=== PATIENT | female | born 1945 | race Caucasian/White ===

== ENCOUNTER 2018-03-09 07:05 | Emergency (ER) | payer MEDICARE, SELFPAY ==
[2018-03-09 07:12] VITALS: BP 159/73; PULSE 86; RESP 12; TEMP 36.9; O2SAT 96; BMI 32.7
[2018-03-09 07:17] VITALS: BP 151/77; PULSE 85; RESP 16; O2SAT 96
[2018-03-09 07:43] LABS: Bacteria 0 SEEN /hpf (None Seen); Mucous, Urine 0 SEEN /hpf (<or=2+); Red Blood Cells-Urine 0 SEEN /hpf (0-5); White Blood Cells 0 SEEN /hpf (0-5)
[2018-03-09 07:46] LABS: Color, Urine Yellow (Yellow); Glucose, Dipstick 1000 mg/dl (Normal); Ketone-Dipstick Negative (Negative); Leukocyte Esterase-Dipstick Negative /ul (Negative); Nitrite-Dipstick Negative (Negative); Occult Blood-Urine Negative /ul (Negative); Protein-Dipstick Negative (Negative); Specific Gravity, Urine 1.005 (1.002-1.030); Urine Bilirubin Dipstick Negative (Negative); Urine Clarity Sl. Cloudy (Clear); Urine Urobilinogen Normal (Normal)
[2018-03-09 07:52] LABS: Squamous Epithelial Cells - UA 0-5 SEEN /hpf (5-10)
--- NOTE | 2018-03-09 07:52 | ED.VISSUMM ---
- ER Visit Summary Date of Service: 03/09/18 Chief Complaint: Dizziness History of Present Illness: The patient is a 72 F presenting for evaluation secondary dizziness. Patient reports that tonight she rolled over in bed and had a sudden onset of dizziness. She describes this as a sudden onset sudden offset spinning type sensation that seems to be worsened when she is laying flat and she rolls over. Patient states that is not associated with any sort of visual changes speech difficulty headache weakness or paresthesia. Patient reports that directly after the episode she took her blood pressure and noted it to be in the 180s over 90s range. Patient also states that she has been having elevated blood sugars recently. She is on metformin, no recent changes in her dosage. Patient denies any chest pain or shortness of breath. She denies any neck trauma or cervical manipulation. Review of systems otherwise negative. Physical Examination: Vital signs are within normal limits, patient is afebrile. General: Patient is well-nourished well-developed and in no acute distress. Head: Normocephalic, atraumatic Eyes: Pupils equal round and reactive bilaterally, extra occular motion intact bialterally ENT: Moist mucous membranes Neck: Supple, no lymphadenopathy, no JVD, no meningismus CVS: Heart regular rate and rhythm, no murmurs, rubs or gallops, radial pulses 2+ bilaterally Resp: Respirations nondistressed, lung sounds clear bilaterally Abdomen: Soft, nontender, nondistended, no palpable masses, normal bowel sounds Back: Nontender Extremities: Nontender, atraumatic, active full range of motion, no peripheral edema Skin: warm, no rashes, no petechia Neuro: Alert and oriented x 4, CN 2-12 intact, no lateralizing neurological defecits, NIH stroke scale is 0. Positive Hanane-Hallpike maneuver on the right with some rotary nystagmus Psyc: Normal affect Test Results: Urinalysis demonstrates no evidence of infection but does demonstrate glucose. Chemistry shows hyperglycemia with normal renal function Emergency Department Course and Treatment: Patient presented for evaluation secondary to dizziness. Patient's history and physical exam seem very consistent with peripheral vertigo. Patient was recommended on conservative management of this. Given the patient's labile blood sugars recently, I did check a metabolic panel on her to ensure normal renal function and this was normal, she also has no evidence of UTI. She was recommended follow-up with her primary care physician for potential titration of her hyperglycemic medications. Since blood pressure on repeat evaluation was 130/70. Patient is discharged in stable condition. Disposition: Discharge Impression: 1. Right-sided BPPV 2. Hyperglycemia This note was generated with [employer] dictation software. It may contain incorrect words, spelling, and punctuation that were not noted in review of the chart prior to signing ED Disposition - Plan for ED Patient: Disposition: Home or Assisted Living Chief Complaint: Burn Diagnosis: BPPV (benign paroxysmal positional vertigo) Instructions: ED BPV Vertigo Referrals: Louise Barahona MD [Primary Care Provider] -
[2018-03-09 08:00] LABS: Anion Gap 9 (5-15); BUN 19 mg/dL (7-18); BUN/Creat Ratio 19.2 RATIO (10-20); Calcium,Total 8.8 mg/dL (8.5-10.1); Chloride 103 mmol/L (98-107); Creatinine, Serum 0.99 mg/dL (0.55-1.02); EST Glomerular Filtration Rate 59 mL/min (>60); Est Glom Filt Rate - Afr Amer 71 mL/min (>60); Estimated Creatinine Clearance 48.79 ml/min; Glucose 231 mg/dL (74-106); Potassium 4.4 mmol/L (3.5-5.1); Sodium Level 138 mmol/L (136-145)
[2018-03-09 08:41] VITALS: BP 135/72; PULSE 71; RESP 16; O2SAT 97
== END 2018-03-09 08:41 | disposition home or self-care (01) ==
PROVIDERS: Emergency Provider Emergency Medicine; Family Provider Internal Medicine; PCP Internal Medicine
DX: H81.10 Benign paroxysmal vertigo, unspecified ear (principal); E11.65 Type 2 diabetes mellitus with hyperglycemia; I10 Essential (primary) hypertension; Z79.84 Long term (current) use of oral hypoglycemic drugs; Z79.82 Long term (current) use of aspirin; Z79.891 Long term (current) use of opiate analgesic; Z79.899 Other long term (current) drug therapy
CPT/HCPCS: 80048; 81001; 99282

== ENCOUNTER 2020-02-11 08:41 | Inpatient (IN) | payer MEDICARE, SELFPAY ==
[2020-02-11] VITALS (16 sets, daily range): BP systolic 95–162; BP diastolic 58–112; PULSE 64–148; RESP 16–22; TEMP 36.1–37; O2SAT 94–98; BMI 32.3; BMI 31.8; BMI 31.9
--- NOTE | 2020-02-11 08:55 | EKG12_ITS ---
Test Reason : TACHY Blood Pressure : / mmHG Vent. Rate : 147 BPM Atrial Rate : 163 BPM P-R Int : 000 ms QRS Dur : 084 ms QT Int : 272 ms P-R-T Axes : 000 033 090 degrees QTc Int : 425 ms Atrial fibrillation with rapid ventricular response Low voltage QRS (Limb Leads) Abnormal ECG Confirmed by PREET ROBLES, ARMANDO ([id number]), mapping editor RAINER BURTON ([id number]) on 02/14/2020 11:27:35 AM Referred By: YIMI Confirmed By:ARMANDO OVIEDO MD
--- NOTE | 2020-02-11 08:59 | EKG12_ITS ---
Test Reason : REPEAT Blood Pressure : / mmHG Vent. Rate : 093 BPM Atrial Rate : 133 BPM P-R Int : 000 ms QRS Dur : 078 ms QT Int : 368 ms P-R-T Axes : 000 012 073 degrees QTc Int : 457 ms Atrial fibrillation Low voltage QRS (Limb Leads) Abnormal ECG Confirmed by PREET ROBLES, ARMANDO ([id number]), editor publications RAINER BURTON ([id number]) on 02/14/2020 11:23:59 AM Referred By: YIIM Confirmed By:ARMANDO OVIEDO MD
[2020-02-11] MEDS: dilTIAZem 25 MG/5 ML Vial 20 MG IV BOLUS ×2 (09:10→10:30)
[2020-02-11] MEDS: 0.9% Normal Saline 1,000 ML 1000 ML IV (09:10)
--- NOTE | 2020-02-11 09:25 | RAD_ITS ---
STUDY: X-RAY CHEST REASON FOR EXAM: Female, 74 years old. SOB TECHNIQUE: Single AP portable view of the chest. COMPARISON: None. FINDINGS: EKG electrodes are seen. The lungs are clear and expanded. There is no demonstrated pleural abnormality. Normal size heart. Normal mediastinum and taylor. Normal visualized pulmonary arteries. Normal visualized aortic arch and descending thoracic aorta. Normal visualized thoracic spine. Normal visualized ribs, clavicles, and shoulders. There is no demonstrated abnormality of the visualized soft tissue structures of the upper abdomen. RAD/Chest 1 View (Portable) IMPRESSION: Normal x-ray examination of the chest. Electronically Signed: Iker Prabhakar, at 9:47 EDT , Service support ,
[2020-02-11 09:40] LABS: Absolute Lymphocyte Count 1.72 X10^3/uL (0.83-4.51); Basophil# 0.05 X10^3/uL; Basophil% 0.7 % (0-1); Eosinophil# 0.06 X10^3/uL; Eosinophils% 0.8 % (0-5); Hematocrit 43.8 % (37-47); Hemoglobin 14.2 g/dL (12.0-15.0); Lymphocyte # 1.72 X10^3/ul (4.0); Lymphocyte % 23.5 % (19-41); Mean Corp Hgb Conc 32.4 g/dL (32-36); Mean Corpuscular Hgb 27.7 pg (27.0-32.0); Mean Corpuscular Volume 85.5 fL (81-99); Mean Platelet Vol. 11.2 fl (6.2-12.0); Monocyte# 0.42 X10^3/uL; Monocyte% 5.7 % (0-10); NRBC Flagged by Analyzer 0 % (0-5); Neutrophil # 5.04 X10^3/uL (2.7-7.7); Neutrophil % 68.9 % (47-70); Platelet Count 298 K/mm3 (150-450); RBC Distribution Width CV 13.2 % (11.6-14.6); RBC Distribution Width SD 41.5 fl (35.1-43.9); Red Blood Count 5.12 M/mm3 (4.2-5.4); White Blood Count 7.3 K/mm3 (4.4-11.0)
[2020-02-11 09:42] LABS: D-Dimer Quantitative (DVT/PE) 0.59 FEU/ug/m (0.27-0.49)
--- NOTE | 2020-02-11 09:45 | CT_ITS ---
STUDY: CTA CHEST REASON FOR EXAM: Female, 74 years old. SOB, HTN RADIATION DOSAGE (If Supplied By Facility): CTDIvol = ( 10.525 ) mGy, DLP = ( 484.66 ) mGycm TECHNIQUE: The examination was performed with the intravenous administration of IV 100mL Isovue-370. Post-processing of the angiographic images was performed, with multiplanar reformation and 3D reconstruction. Individualized dose optimization techniques were used for this CT. COMPARISON: None. FINDINGS: Normal enhancement of the main pulmonary artery and right and left pulmonary arteries. Normal enhancement of the bilateral peripheral pulmonary arteries. There is no demonstrated pulmonary embolism. There is atherosclerotic calcification of the aortic arch with tortuosity. There is no demonstrated aortic dissection. There are calcifications of the coronary arteries. Normal mediastinum. Normal hilar regions. Normal visualized trachea and bronchi. The lungs are well expanded. Normal pulmonary parenchyma. Normal pleura. Normal chest wall structures. There are degenerative changes of thoracic spine. I suspect a 1 cm fat-containing nodule in the upper pole of the right kidney in keeping with angiomyolipoma. CT/CTA Chest W/WO Contrast IMPRESSION: No acute abnormality is seen. Electronically Signed: Iker Prabhakar, at 10:32 EDT , Service support ,
[2020-02-11 09:49] LABS: Anion Gap 9 (5-15); BUN 25 mg/dL (7-18); BUN/Creat Ratio 23.4 RATIO (10-20); Chloride 99 mmol/L (98-107); Creatinine, Serum 1.07 mg/dL (0.55-1.02); EST Glomerular Filtration Rate 53 mL/min (>60); Est Glom Filt Rate - Afr Amer 65 mL/min (>60); Estimated Creatinine Clearance 43.84 ml/min; Glucose 377 mg/dL (74-106); Magnesium 1.4 mg/dL (1.6-2.6); Potassium 4.2 mmol/L (3.5-5.1); Sodium Level 135 mmol/L (136-145)
--- NOTE | 2020-02-11 10:50 | PCM.HP.STD ---
History of Present Illness The patient is a 74 year old F [] Past Medical History Past Medical History (Chronic Problems): Chronic Problems DM2 (diabetes mellitus, type 2) (Chronic) Hypothyroidism (Chronic) Hypertension (Chronic) Allergies benazepril Adverse Reaction (Verified 02/11/20 09:28) PT UNSURE OF REACTION Home Medications: Ambulatory Orders Medication Instructions Recorded Atenolol [Tenormin (beta glendy)] 25 mg PO BID 09/04/16 Felodipine [Plendil] 10 mg PO DAILY 09/04/16 Folic Acid 1 mg PO DAILY@0800 09/04/16 Glimepiride [Amaryl] 1 mg PO BID 09/04/16 Levothyroxine Sodium 137 mcg PO DAILY 09/04/16 metFORMIN HCl [Glucophage] 1,000 mg PO BIDCM 09/04/16 Acetaminophen [Tylenol] 1,000 mg PO Q8 03/09/18 Aspirin 81 mg PO DAILY 02/11/20 Atorvastatin Calcium 20 mg PO DAILY 02/11/20 Losartan/Hydrochlorothiazide 1 tab PO DAILY 02/11/20 [Hyzaar 50-12.5 Tablet] Smoking Status: Former smoker - *Family History Paternal History Items: Heart Disease - Physical Exam Vitals/I&O's: Vital Signs Temp Pulse Resp BP Pulse Ox 97.4 F L 111 H 18 130/87 H 98 02/11/20 09:28 02/11/20 10:31 02/11/20 10:31 02/11/20 10:31 02/11/20 10:31 Oxygen Flow Rate (L/min) 2 Oxygen Delivery Method Nasal Cannula Weight: 200 lb 6.403 oz Body Mass Index (BMI) 32.3 Finger Stick Blood Glucose 263 Laboratory Results 02/11/20 09:10: WBC 7.3, RBC 5.12, Hgb 14.2, Hct 43.8, MCV 85.5, MCH 27.7, MCHC 32.4, RDW Std Deviation 41.5, RDW Coeff of Marcie 13.2, Plt Count 298, MPV 11.2, Immature Gran % (Auto) 0.400, Neut % (Auto) 68.9, Lymph % (Auto) 23.5, [place] % (Auto) 5.7, Eos % (Auto) 0.8, Baso % (Auto) 0.7, Absolute Neuts (auto) 5.0, Absolute Lymphs (auto) 1.72, Nucleated RBC % 0 02/11/20 09:10: Sodium 135 L, Potassium 4.2, Chloride 99, Carbon Dioxide 27.0, Anion Gap 9, BUN 25 H, Creatinine 1.07 H, Estim Creat Clear Calc 43.84, Est GFR (MDRD) Af Amer 65, Est GFR (MDRD) Non-Af 53 L, BUN/Creatinine Ratio 23.4 H, Glucose 377 H, Calcium 9.0, Magnesium 1.4 L, Troponin I < 0.015 02/11/20 09:10: D-Dimer Quant (PE/DVT) 0.59 H* Assessment/Plan All Active Problems Status post left hip replacement (Acute)
[2020-02-11] MEDS: dilTIAZem 60 MG Tablet PO (11:21)
[2020-02-11] MEDS: Enoxaparin 100 MG/ML Syringe 90 MG SC (11:21)
--- NOTE | 2020-02-11 11:22 | HP.PCM_ITS ---
Problem List (1) New onset atrial fibrillation Status: Acute (2) Status post left hip replacement Status: Chronic (3) DM2 (diabetes mellitus, type 2) Status: Chronic (4) Hypertension Status: Chronic (5) Hypothyroidism Status: Chronic (6) Atrial fibrillation with RVR Status: Acute History of Present Illness Date of Admission: 02/11/20 Chief Complaint: Shortness of breath on exertion for 2 days The patient is a 74 year old F with history of diabetes mellitus type 2 and hypothyroidism but no prior cardiac disease came to ED after she felt shortness of breath on climbing stairs. She felt tired and weak and mild short of breath on usual house chores yesterday. She woke up in the morning with some funny feeling. After that, she feels short of breath on 1 flight of stairs but denies pounding sensation, palpitation or chest pain. She felt mild chest tightness. In the morning, her heart rate was 147/min and blood pressure is elevated at home. She denies any previous history of A. fib, coronary artery disease or CHF. No leg edema or gaining weight. Denies fever or chills or cough or attending large gathering or crowd. [] In ED, she was found heart rate 148/min, blood pressure 162/92, pulse ox 97% on room air. No tachypnea. Twelve-lead EKG was done and shows A. fib with RVR at 147 bpm. Previous EKG in August 2016 was sinus rhythm at 73 bpm. She had normal chest x-ray and chest CT was done for elevated D-dimer which did not show acute abnormality. Past Medical History Past Medical History (Chronic Problems): Chronic Problems DM2 (diabetes mellitus, type 2) (Chronic) Hypothyroidism (Chronic) Hypertension (Chronic) Status post left hip replacement (Chronic) Allergies benazepril Adverse Reaction (Verified 02/11/20 09:28) PT UNSURE OF REACTION Home Medications: Ambulatory Orders Medication Instructions Recorded Atenolol [Tenormin (beta glendy)] 25 mg PO BID 09/04/16 Felodipine [Plendil] 10 mg PO DAILY 09/04/16 Folic Acid 1 mg PO DAILY@0800 09/04/16 Glimepiride [Amaryl] 1 mg PO BID 09/04/16 Levothyroxine Sodium 137 mcg PO DAILY 09/04/16 metFORMIN HCl [Glucophage] 1,000 mg PO BIDCM 09/04/16 Acetaminophen [Tylenol] 1,000 mg PO Q8 03/09/18 Aspirin 81 mg PO DAILY 02/11/20 Atorvastatin Calcium 20 mg PO DAILY 02/11/20 Losartan/Hydrochlorothiazide 1 tab PO DAILY 02/11/20 [Hyzaar 50-12.5 Tablet] Smoking Status: Former smoker - 15 years ago. Started smoking in her 20s. - *Family History Paternal History Items: Heart Disease Review of Systems Constitutional: Denies: Chills, Fever, Weight Change HEENT: Denies: Head Aches, Sinus Congestion, Sinus Drainage Cardiovascular: Reports: Chest Tightness. Denies: Chest Pain, Edema, Palpitations Respiratory: Reports: Shortness of breath upon exertion. Denies: Cough, Hemoptysis, Pleuritic Pain, Shortness of breath at rest, Sputum production, Wheezing Gastrointestinal: Denies: Abdominal Pain, Nausea, Vomiting Genitourinary: Denies: Dysuria, Frequency, Retention, Urgency Musculoskeletal: Denies: Joint Pain, Joint Tenderness Skin: Denies: Rash, Wounds Neurological: Denies: Balance problems, Focal weakness, Numbness, Tingling Psychiatric: Denies: Anxiety, Depression, Homicidal Ideations, Suicidal Ideations Hematologic/ Lymphatic: Denies: Easy Bruising, Easy Bleeding VTE Information - Inpt Only VTE Present on Admission: No VTE Mechan Device Prophylaxis: None VTE Pharm Prophylaxis ordered?: No Reason prophylaxis not ordered:: Procedure Not Indicated - Already on anticoagulant for A. fib Objective: Physical exam General: Alert, Oriented x3, Cooperative, mild obesity, BMI 32.3 kg/m? HEENT: Atraumatic, PERRLA, EOMI, Normocephalic Oral: No Gingival or Mucosal Lesions/ Ulcerations Neck: Supple, No JVD, Negative Carotid Bruits Lungs: Air entry diminished in bilateral lung bases. No crepitation/rhonchi Cardiovascular: Irregular rate and rhythm, A. fib with RVR, normal S1, Normal S2, No murmurs Abdomen: Bowel Sounds Present, Soft, Non Tender, Non-Distended : No renal angle tenderness. No suprapubic tenderness. Extremities: No edema, Capillary Refill Less than 3 Seconds Skin: No rashes, No breakdown Musculoskeletal: No Tenderness to Palpation of Joints or Extremities Neurological: Cranial nerves II-XII grossly intact, Deep Tendon Reflexes 2+/4 and Symmetrical, Neuro grossly intact Psych/Mental Status: Normal Affect, Appropriate. - Physical Exam Vitals/I&O's: Vital Signs Temp Pulse Resp BP Pulse Ox 97.4 F L 111 H 18 130/87 H 98 02/11/20 09:28 02/11/20 10:31 02/11/20 10:31 02/11/20 10:31 02/11/20 10:31 Oxygen Flow Rate (L/min) 2 Oxygen Delivery Method Nasal Cannula Weight: 200 lb 6.403 oz Body Mass Index (BMI) 32.3 Finger Stick Blood Glucose 263 Laboratory Results 02/11/20 09:10: WBC 7.3, RBC 5.12, Hgb 14.2, Hct 43.8, MCV 85.5, MCH 27.7, MCHC 32.4, RDW Std Deviation 41.5, RDW Coeff of Marcie 13.2, Plt Count 298, MPV 11.2, Immature Gran % (Auto) 0.400, Neut % (Auto) 68.9, Lymph % (Auto) 23.5, [place] % (Auto) 5.7, Eos % (Auto) 0.8, Baso % (Auto) 0.7, Absolute Neuts (auto) 5.0, Absolute Lymphs (auto) 1.72, Nucleated RBC % 0 02/11/20 09:10: Sodium 135 L, Potassium 4.2, Chloride 99, Carbon Dioxide 27.0, Anion Gap 9, BUN 25 H, Creatinine 1.07 H, Estim Creat Clear Calc 43.84, Est GFR (MDRD) Af Amer 65, Est GFR (MDRD) Non-Af 53 L, BUN/Creatinine Ratio 23.4 H, Glucose 377 H, Calcium 9.0, Magnesium 1.4 L, Troponin I < 0.015 02/11/20 09:10: D-Dimer Quant (PE/DVT) 0.59 H* 02/11/20 11:10: COVID-19 ([facility]) Pending Current Medications Insulin Glargine (Insulin Glargine 100 Units/Ml Pen) 10 units SC DINNER COUNTS INCLUDE 234 BEDS AT THE [facility] Assessment/Plan All Active Problems New onset atrial fibrillation (Acute) Atrial fibrillation with RVR (Acute) This 74-year-old female with history of diabetes mellitus type 2 is being admitted for new onset A. fib with RVR. 1. New onset A. fib with RVR: Patient is being admitted in PCU if COVID-19 PCR is negative. Started on metoprolol 50 mg p.o. twice daily along with Cardizem 30 mg every 6 hourly. Patient heart rate has slowed, low 100s to 110s. At home, patient already on atenolol 25 mg p.o. twice daily and baby aspirin and levothyroxine 137 mcg daily. 2D echo is ordered. Patient got Lovenox in ED. Started on Eliquis 5 mg p.o. twice daily. Fasting profile ordered for tomorrow a.m. 2. 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 Hold Metformin as patient had CT IV contrast. IV fluid normal saline at 60 mils per hour to prevent contrast-induced nephropathy. BUN/creatinine 25/1.07 elevated than baseline 19/0.99 in February 2018. Monitor BMP tomorrow a.m. along with urine include and output. UA shows glucosuria but no proteinuria. 3. Hypertension: At home patient is on Hyzaar 50-12.5 mg daily. Continued. It is unclear whether she is on felodipine 10 mg daily or not but will hold it. 4. Hypothyroidism: TSH and free T4 tomorrow a.m. Continue levothyroxine as mentioned above. VTE prophylaxis: Already on Eliquis. [id number]
--- NOTE | 2020-02-11 11:29 | ED.DCSUM_ITS ---
History of Present Illness Chief Complaint: Shortness of Breath Informant: Patient Narrative: 74-year-old female with past medical history of hypertension presents with concern for shortness of breath. States that it began early this morning. States that she went to climb stairs and she is profoundly short of breath. Denies any chest pain, nausea, vomiting, fever, chills. Denies any sick contacts. Past Medical History - Allergies and Home Meds Allergies/Adverse Reactions: Allergies benazepril Adverse Reaction (Verified 02/11/20 09:28) PT UNSURE OF REACTION Prior records reviewed: Yes Past Medical History: - - HTN Lives: Spouse/ Significant Other Smoking Status: Former smoker Alcohol: None Drugs: None - Family History Paternal Family History: Reports: Heart Disease Review of Systems General: Denies: Chills, Fever, Sweats Eyes: Denies: Visual changes - bilaterally, Diplopia ENT: Denies: Rhinorrhea, Sore throat Cardiovascular: Denies: Chest pain, Palpitations Respiratory: Reports: Dyspnea. Denies: Cough, Dyspnea on exertion Gastrointestinal: Denies: Abdominal pain, Nausea, Vomiting, Diarrhea, Melena, Hematochezia Genitourinary: Denies: Dysuria, Hematuria, Frequency Musculoskeletal: Denies: Back pain, Extremity Pain Skin: Denies: Rash, Wounds Neurological: Denies: Headache, Weakness, Numbness Physical Exam Vital Signs/Narrative: Vital Signs Temp Pulse Resp BP Pulse Ox 02/11/20 10:31 111 H 18 130/87 H 98 02/11/20 09:28 97.4 F L 114 H 18 131/74 H 97 02/11/20 09:21 114 H 18 131/74 H 97 02/11/20 09:03 97 02/11/20 09:02 139 H 18 96 02/11/20 08:44 97.4 F L 148 H 18 162/92 H 97 Inital Vital Signs reviewed: Yes General: Well nourished, Well developed, No Acute Distress Head: Normocephalic, Atraumatic Eyes: Perrl, EOMI ENT: Moist mucous membranes, No rhinorrhea Neck: Supple, Nontender Cardiovascular: No murmurs, Irregular, Tachycardia Respiratory: No distress, CTA bilaterally, Chest nontender Abdomen: Soft, Nontender, Nondistended, Normal bowel sounds Back: Nontender, Normal Inspection Extremities: Nontender, No edema Skin: Normal color, No rash Neurological: Alert, Oriented x3, Cranial nerves II-XII grossly intact, Normal Strength, Normal Sensation Psychological: Normal affect, Normal Mood Diagnostic/Tx/Re-eval Chest X-Ray - ED: 1 View, Normal Clinical Impression(s) from Imaging Studies Chest X-Ray 02/11/20 09:25 IMPRESSION: Normal x-ray examination of the chest. Electronically Signed: Iker Aki, at 9:47 EDT , Service support , Chest CTA 02/11/20 09:45 IMPRESSION: No acute abnormality is seen. Electronically Signed: Iker Aki, at 10:32 EDT , Service support , Laboratory Data 02/11/20 02/11/20 02/11/20 09:10 09:10 09:10 WBC 7.3 RBC 5.12 Hgb 14.2 Hct 43.8 MCV 85.5 MCH 27.7 MCHC 32.4 RDW Std Deviation 41.5 RDW Coeff of Marcie 13.2 Plt Count 298 MPV 11.2 Immature Gran % (Auto) 0.400 Neut % (Auto) 68.9 Lymph % (Auto) 23.5 [place] % (Auto) 5.7 Eos % (Auto) 0.8 Baso % (Auto) 0.7 Absolute Neuts (auto) 5.0 Absolute Lymphs (auto) 1.72 Nucleated RBC % 0 D-Dimer Quant (PE/DVT) 0.59 H* Sodium 135 L Potassium 4.2 Chloride 99 Carbon Dioxide 27.0 Anion Gap 9 BUN 25 H Creatinine 1.07 H Estim Creat Clear Calc 43.84 Est GFR (MDRD) Af Amer 65 Est GFR (MDRD) Non-Af 53 L BUN/Creatinine Ratio 23.4 H Glucose 377 H Calcium 9.0 Magnesium 1.4 L Troponin I < 0.015 - Rhythm Strip Rate: 148 - EKG Initial EKG Interpretation: Atrial Fibrillation - Atrial fibrillation with rapid ventricular rate at [address] changes. - Medical Decision Making Appears well nontoxic. A. fib with RVR. Patient was given 20 mg of Cardizem IV twice. This did reduce her heart rate into the mid 90s. She was then given p.o. Cardizem. This is new onset atrial fibrillation. For that reason CTA was done which shows no pulmonary embolism. Patient was given 1 mg/kg subcutaneous Lovenox. Hypomagnesemia replaced IV. Other lab work within normal limits including a negative troponin. Patient will be admitted to the hospital for further treatment and evaluation. Stable at time of admission. Impression: 1. New onset atrial fibrillation with RVR 2. Hypomagnesemia 3. Dyspnea - Critical Care Time Critical care time (excluding procedures): 30-74 minutes, Discussing w/Patient &/or Family/Supervisor Press Room, Performing Direct Patient Care at Bedside ED Disposition - Plan for ED Patient: Disposition: Acute Care [facility]
[2020-02-11] MEDS: Magnesium Sulfate 2 GM IV IV (11:53)
--- NOTE | 2020-02-11 15:19 | ECHOCS_ITS ---
Reason For Study: NEW ONSET AFIB Procedure This was a 2D Doppler, Color Flow transthoracic echocardiogram. The study was technically difficult. Contrast injection was performed. Exam performed portable in patient room. Left Ventricle Normal LV size. Sigmoid septum. Left ventricular systolic function is normal. The estimated ejection fraction is 65 %. No regional wall motion abnormalities noted. Right Ventricle Normal RV size. Normal systolic function. Atria The left atrium is moderately enlarged. Normal right atrium. No doppler evidence for ASD. Mitral Valve There is moderate to severe mitral annular calcification. Extension of the mitral annular calcification onto the mitral valve leaflets. Mild diffuse mitral valve thickening. Mild focal mitral valve calcification of the anterior leaflet. Moderate mitral valve stenosis. Mild (1+) mitral valve insufficiency. Tricuspid Valve Normal tricuspid valve. Mild tricuspid valve insufficiency. Right ventricular systolic pressure estimated to be 35 mmHg. Aortic Valve Trisinus/trileaflet aortic valve. Mild diffuse aortic valve thickening. Mild focal aortic valve calcification. Pulmonic Valve The pulmonic valve is not well visualized. Great Vessels Normal sized aortic root. Calcified aortic root. Pericardium/Pleural No pericardial effusion. Medication Diluted definity 3.0ml given slow IV push to enhance endocardial definition. MMode/2D Measurements & Calculations LVIDd: 5.7 cm IVSd: 0.68 cm LVOT diam: 1.9 cm LVIDs: 3.9 cm LVPWd: 0.79 cm RVDd: 3.4 cm FS: 31.2 % LVOT area: 2.7 cm2 Ao root diam: 3.4 cm LAV(MOD-bp): 91.3 ml LA A4 area: 25.6 cm2 LAV(MOD-bp) Indexed: 45.9 ml/m2 LAV(MOD-sp2): 101.3 ml LAV(MOD-sp4): 84.3 ml LA dimension(2D): 5.0 cm RA A4 area: 13.6 cm2 Doppler Measurements & Calculations MV E max onur: 217.8 cm/sec Lat Peak E' Onur: 7.4 cm/sec Med Peak E' Onur: 4.2 cm/sec MV A max onur: 198.4 cm/sec E/E' lat: 29.6 E/E' med: 51.9 MV E/A: 1.1 MV V2 max: 197.2 cm/sec PA V2 max: 98.2 cm/sec TR max onur: 281.6 cm/sec MV max P.6 mmHg TR max P.7 mmHg MV V2 mean: 148.7 cm/sec MV mean P.2 mmHg MV V2 VTI: 53.2 cm MV P1/2t-pr_phl: 127.6 msec Interpretation Summary The study was technically difficult. Contrast injection was performed. Left ventricular systolic function is normal. The estimated ejection fraction is 65 %. Sigmoid septum. The left atrium is moderately enlarged. There is moderate to severe mitral annular calcification. Extension of the mitral annular calcification onto the mitral valve leaflets. Mild diffuse mitral valve thickening. Mild focal mitral valve calcification of the anterior leaflet. Moderate mitral valve stenosis. Mild (1+) mitral valve insufficiency. Mild tricuspid valve insufficiency. Mild diffuse aortic valve thickening. Mild focal aortic valve calcification. Calcified aortic root. Right ventricular systolic pressure estimated to be 35 mmHg. Transmitral diastolic flow velocities suggest diastolic dysfunction (pseudonormal pattern). Ordering Physician: Edgar Gunter Referring Physician: ADDI ACEVEDO Performed By: Erika Powers, ZEV, RVT
--- NOTE | 2020-02-11 16:15 | EKG12_ITS ---
Test Reason : Blood Pressure : / mmHG Vent. Rate : 067 BPM Atrial Rate : 067 BPM P-R Int : 212 ms QRS Dur : 074 ms QT Int : 434 ms P-R-T Axes : 050 005 082 degrees QTc Int : 458 ms Sinus rhythm with 1st degree A-V block Otherwise normal ECG When compared with ECG of 11-FEB-2020 11:05, MANUAL COMPARISON REQUIRED, DATA IS UNCONFIRMED Confirmed by JANEL ROBLES, KEVIN ([id number]), fashion editor RAINER BURTON ([id number]) on 02/15/2020 10:59:54 AM Referred By: SUHAIL Confirmed By:KEVIN ISLAS MD
[2020-02-11] MEDS: 0.9% Normal Saline 1,000 ML 60 ML IV (17:42)
[2020-02-11] MEDS: Atorvastatin Calcium 20 MG Tablet PO (21:24)
[2020-02-11] MEDS: Metoprolol Tartrate 25 MG Tablet PO (21:24)
[2020-02-11] MEDS: Insulin Lispro 100 UNIT/ML INSULN.PEN SC (21:34)
[2020-02-11 21:45] LABS: Bedside Glucose 213 mg/dL (70-110)
[2020-02-12 03:17] VITALS: BP 103/50; PULSE 72; RESP 17; TEMP 36.5; O2SAT 94
[2020-02-12 03:36] VITALS: PULSE 69
[2020-02-12] MEDS: Levothyroxine 137 MCG Tablet PO (05:11)
[2020-02-12] MEDS: Enoxaparin 40 MG/0.4 ML Syringe SC (05:13)
[2020-02-12] MEDS: 0.9% Saline Lock 10 ML Syringe IV (05:19)
[2020-02-12] MEDS: Insulin Lispro 100 UNIT/ML INSULN.PEN SC ×2 (06:57→11:32)
[2020-02-12 07:11] LABS: Bedside Glucose 183 mg/dL (70-110)
[2020-02-12 07:41] LABS: Absolute Neutrophil Count 4.2 X10^3/uL (2.0-7.7); Basophil# 0.03 X10^3/uL; Basophil% 0.4 % (0-1); Eosinophil# 0.13 X10^3/uL; Eosinophils% 1.8 % (0-5); Hematocrit 44.5 % (37-47); Hemoglobin 13.7 g/dL (12.0-15.0); Lymphocyte % 35.2 % (19-41); Mean Corp Hgb Conc 30.8 g/dL (32-36); Mean Corpuscular Hgb 26.6 pg (27.0-32.0); Mean Corpuscular Volume 86.4 fL (81-99); Mean Platelet Vol. 10.5 fl (6.2-12.0); Monocyte# 0.43 X10^3/uL; Monocyte% 5.8 % (0-10); NRBC Flagged by Analyzer 0 % (0-5); Neutrophil # 4.18 X10^3/uL (2.7-7.7); Neutrophil % 56.5 % (47-70); Platelet Count 312 K/mm3 (150-450); RBC Distribution Width CV 13.2 % (11.6-14.6); RBC Distribution Width SD 42.2 fl (35.1-43.9); Red Blood Count 5.15 M/mm3 (4.2-5.4); White Blood Count 7.4 K/mm3 (4.4-11.0)
[2020-02-12] MEDS: Folic Acid 1 MG Tablet PO (09:07)
[2020-02-12] MEDS: Glimepiride 1 MG Tablet PO (09:08)
[2020-02-12] MEDS: hydroCHLOROthiazide 12.5mg 12.5 MG PO (09:08)
[2020-02-12 09:09] VITALS: BP 115/51; PULSE 87
[2020-02-12] MEDS: Losartan Potassium 50 MG Tablet PO (09:09)
[2020-02-12] MEDS: Metoprolol Tartrate 25 MG Tablet PO (09:09)
[2020-02-12 09:15] VITALS: BP 115/51; PULSE 87; RESP 16; TEMP 37.1; O2SAT 96
[2020-02-12 09:24] LABS: Anion Gap 5 (5-15); BUN 17 mg/dL (7-18); BUN/Creat Ratio 18.4 RATIO (10-20); Calcium,Total 8.4 mg/dL (8.5-10.1); Chloride 101 mmol/L (98-107); Cholesterol 146 mg/dL (200); Creatinine, Serum 0.93 mg/dL (0.55-1.02); EST Glomerular Filtration Rate 63 mL/min (>60); Est Glom Filt Rate - Afr Amer 76 mL/min (>60); Estimated Creatinine Clearance 50.44 ml/min; Glucose 200 mg/dL (74-106); High Density Lipoprotein 33 mg/dL; Potassium 3.9 mmol/L (3.5-5.1); Sodium Level 137 mmol/L (136-145); T4 Free Direct 1.61 ng/dL (0.76-1.46); Thyroid Stim Hormone (TSH) 1.84 uIU/mL (0.358-3.74); Triglycerides 241 mg/dL; Very Low Density Lipoprotein 48 mg/dL (5-40)
--- NOTE | 2020-02-12 10:30 | DCINST_ITS ---
- Discharge Diagnoses Current Active Problems: Current Active and Chronic Problems New onset atrial fibrillation (Acute) Atrial fibrillation with RVR (Acute) DM2 (diabetes mellitus, type 2) (Chronic) Hypothyroidism (Chronic) Hypertension (Chronic) Status post left hip replacement (Chronic) You will use the following diet at home:: Calorie/Carbohydrate Controlled (specify 1200, 1400, etc) - 1800 ADA diet, Cardiac Your food should be the consistency of: Regular Discharge Activity: Return to Normal Activity Weight Bearing Status: Weight bearing as tolerated Call your doctor if you observe: Fever of 101 or Higher, Coldness, Increased Pain, Change in Color, Inability to urinate, Inability to have a bowel movement, Using more than one pad per hour, Shortness of breath, Fainting spells, Swelling in the ankles, Chest pain, Prolonged hiccoughing, Increased palpitations (irregular heartbeat), Calf discomfort, Uncontrolled pain Additional Instructions: Felodipine was discontinued as patient already on losartan/HCTZ 50-12.5 mg daily. BUN/creatinine was elevated on admission, 25/1.07 which got normal 17/0.93. Free T4 was elevated therefore levothyroxine 137 mcg daily decreased to levothyroxine 112 mcg daily. New prescription for levothyroxine was given. Atorvastatin dose increased to 40 mg daily Allergies/Adverse Reactions: Allergies benazepril Adverse Reaction (Verified 02/11/20 15:27) cough Medications to take at Discharge Folic Acid 1 mg PO DAILY@0800 09/04/16 Glimepiride [Amaryl] 1 mg PO BID 09/04/16 metFORMIN HCl [Glucophage] 1,000 mg PO BIDCM 09/04/16 Aspirin 81 mg PO DAILY 02/11/20 Losartan/Hydrochlorothiazide [Hyzaar 50-12.5 Tablet] 1 tab PO DAILY 02/11/20 Atenolol [Tenormin (beta glendy)] 25 mg PO BID #0 02/12/20 Atorvastatin Calcium 40 mg PO DAILY #0 02/12/20 Levothyroxine [Synthroid] 112 mcg PO DAILY #30 tab 02/12/20 The following prescriptions were given: Levothyroxine [Synthroid] 112 mcg PO DAILY #30 tab Transmission Status: Received by [facility] #[facility] Primary Care Physician: Louise Barahona MD [Primary Care Provider] - Please follow up with your Primary Care Physician in: in 1-2 weeks Test Results: Test results from this visit will be discussed in further detail at your follow- up appointment, if applicable. Please Follow Up With: Louise Barahona MD
--- NOTE | 2020-02-12 10:33 | PCM.DC.SUM ---
Discharge Date and Diagnosis - Problem List Patient Problems: Active and Suspected Problems New onset atrial fibrillation (Acute) Atrial fibrillation with RVR (Acute) Date of Admission: 02/11/20 Date of Discharge: 02/12/20 - Primary Discharge Diagnosis Acute Problems: Active Problems New onset atrial fibrillation (Acute) most likely from hyperthyroidism. - Secondary Discharge Diagnosis Chronic Problems: Chronic Problems DM2 (diabetes mellitus, type 2) (Chronic) Hypothyroidism (Chronic) Hypertension (Chronic) Status post left hip replacement (Chronic) Hospital Course and Treatment Summary of Care Provided: This 74-year-old female with history of diabetes mellitus type 2 is being admitted for new onset A. fib with RVR. 1. New onset A. fib with RVR, most likely from hyperthyroidism.: Patient was admitted in PCU if COVID-19 PCR is negative. Started on metoprolol 50 mg p.o. twice daily along with Cardizem 30 mg every 6 hourly. Patient heart rate has slowed, low 100s to 110s by the time she was admitted. Later she was converted to normal sinus rhythm. TSH normal 1.84, free T4 elevated 1.61. Later on Cardizem discontinued and metoprolol decreased to 25 mg p.o. twice daily. As patient already on atenolol 25 mg p.o. twice daily therefore her beta-glendy was not changed. Advised to hold levothyroxine for 3 days and dose of levothyroxine decreased to 112 mcg daily. Advised to follow with PCP and repeat thyroid function test in 4 weeks to further adjust levothyroxine dose. 2. 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 Hold Metformin as patient had CT IV contrast. IV fluid normal saline at 60 mils per hour to prevent contrast-induced nephropathy. BUN/creatinine 25/1.07 elevated than baseline 19/0.99 in February 2018. BUN/creatinine 17/0.93. Improved. IV fluid discontinued. 3. Hypertension: At home patient is on Hyzaar 50-12.5 mg daily. Felodipine discontinued and this was discussed with the patient and described on the discharge instruction. 4. Hypothyroidism: Levothyroxine dose decreased as mentioned above. 5. Dyslipidemia: Fasting profile shows triglyceride 241, total cholesterol 146. Atorvastatin increased to 40 mg daily. VTE prophylaxis: Eliquis was discontinued and patient converted to sinus rhythm. On regular DVT prophylaxis Lovenox 40 subcu daily. 2D echo was done and reported as mentioned. Left ventricular systolic function is normal. The estimated ejection fraction is 65 %. Sigmoid septum. The left atrium is moderately enlarged. There is moderate to severe mitral annular calcification. Extension of the mitral annular calcification onto the mitral valve leaflets. Mild diffuse mitral valve thickening. Mild focal mitral valve calcification of the anterior leaflet. Moderate mitral valve stenosis. Mild (1+) mitral valve insufficiency. Mild tricuspid valve insufficiency. Mild diffuse aortic valve thickening. Mild focal aortic valve calcification. Calcified aortic root. Right ventricular systolic pressure estimated to be 35 mmHg. Transmitral diastolic flow velocities suggest diastolic dysfunction (pseudonormal pattern). Discharge medication reconciliation done. Discharge follow-up instructions completed. Discharge process discussed with the patient and all questions were answered to patient's satisfaction. Follow-up with PCP for mild to moderate valvular heart disease, moderate MS, mild MR and mild TR. Patient is on baby aspirin, beta-glendy and ARB at home. Total time spent, exact 35 minutes on discharge meds reconciliation, examination, coordination of care with nurses and ancillary staff, review of imaging and blood test and discussion with the patient on follow-up instructions Patient Problems: Active and Suspected Problems New onset atrial fibrillation (Acute) Atrial fibrillation with RVR (Acute) Objective: Patient converted to sinus rhythm yesterday. Heart rate is controlled. Patient free T4 is elevated and discussed to decrease the levothyroxine dose. Does not have chest pain, shortness of breath or palpitation Physical exam General: Alert, Oriented x3, Cooperative, mild obesity, BMI 32.3 kg/m? HEENT: Atraumatic, PERRLA, EOMI, Normocephalic Oral: No Gingival or Mucosal Lesions/ Ulcerations Neck: Supple, No JVD, Negative Carotid Bruits Lungs: Air entry equal in bilateral lung bases. No crepitation/rhonchi Cardiovascular: Sinus rhythm. Normal S1, Normal S2, pansystolic over LLSB and systolic and diastolic murmur present over cardiac apex. Abdomen: Bowel Sounds Present, Soft, Non Tender, Non-Distended : No renal angle tenderness. No suprapubic tenderness. Extremities: No edema, Capillary Refill Less than 3 Seconds Skin: No rashes, No breakdown Musculoskeletal: No Tenderness to Palpation of Joints or Extremities Neurological: Cranial nerves II-XII grossly intact, Deep Tendon Reflexes 2+/4 and Symmetrical, Neuro grossly intact Psych/Mental Status: Normal Affect, Appropriate. - Physical Exam Vitals/I&O's: Vital Signs Temp Pulse Resp BP Pulse Ox 98.7 F 87 16 115/51 L 96 02/12/20 09:15 02/12/20 09:15 02/12/20 09:15 02/12/20 09:15 02/12/20 09:15 Oxygen Flow Rate (L/min) 2 Oxygen Delivery Method Room Air Weight: 197 lb 11.2 oz Body Mass Index (BMI) 31.8 Finger Stick Blood Glucose 263 Intake and Output for Last 24 Hours 02/10/20 02/11/20 02/12/20 23:59 23:59 23:59 Intake Total 2434 / 2434 200 / 200 Balance 2434 / 2434 200 / 200 Laboratory Results 02/11/20 11:10: COVID-19 ([facility]) Not Detected 02/11/20 15:36: Troponin I < 0.015 02/11/20 18:25: Troponin I < 0.015 02/11/20 21:21: POC Glucose 213 H 02/12/20 06:54: POC Glucose 183 H 02/12/20 07:15: WBC 7.4, RBC 5.15, Hgb 13.7, Hct 44.5, MCV 86.4, MCH 26.6 L, MCHC 30.8 L, RDW Std Deviation 42.2, RDW Coeff of Marcie 13.2, Plt Count 312, MPV 10.5, Immature Gran % (Auto) 0.300, Neut % (Auto) 56.5, Lymph % (Auto) 35.2, Butts % (Auto) 5.8, Eos % (Auto) 1.8, Baso % (Auto) 0.4, Absolute Neuts (auto) 4.2, Absolute Lymphs (auto) 2.60, Nucleated RBC % 0 02/12/20 07:15: Sodium 137, Potassium 3.9, Chloride 101, Carbon Dioxide 31.0, Anion Gap 5, BUN 17, Creatinine 0.93, Estim Creat Clear Calc 50.44, Est GFR (MDRD) Af Amer 76, Est GFR (MDRD) Non-Af 63, BUN/Creatinine Ratio 18.4, Glucose 200 H, Calcium 8.4 L, Magnesium 2.0, Triglycerides 241 H, Cholesterol 146, LDL Cholesterol 65, VLDL Cholesterol 48 H, HDL Cholesterol 33 L, TSH 1.84, Free T4 1.61 H 02/12/20 07:15: Hemoglobin A1c Pending Current Medications Acetaminophen (Acetaminophen 500 Mg Tablet) 1,000 mg PO Q8 [facility] Last Admin: 02/12/20 05:18 Dose: Not Given Documented by: Al Hydroxide/Mg Hydroxide (Mag Hydrox/Al Hydrox/Simeth 30 Ml Udc) 30 ml PO Q6H PRN PRN PRN Reason: Gastric Burning Atorvastatin Calcium (Atorvastatin Calcium 20 Mg Tablet) 20 mg PO QHS [facility] Last Admin: 02/11/20 21:24 Dose: 20 mg Documented by: Dextrose (Dextrose 50%-Water 25 Gm/50 Ml Disp.Syrin) 0 gm IV X1 PRN; Protocol PRN Reason: Hypoglycemia Enoxaparin Sodium (Enoxaparin 40 Mg/0.4 Ml Syringe) 40 mg SC DAILY@0600 [facility] Last Admin: 02/12/20 05:13 Dose: 40 mg Documented by: Folic Acid (Folic Acid 1 Mg Tablet) 1 mg PO DAILY@0800 [facility] Last Admin: 02/12/20 09:07 Dose: 1 mg Documented by: Glimepiride (Glimepiride 1 Mg Tablet) 1 mg PO BIDCM [facility] Last Admin: 02/12/20 09:08 Dose: 1 mg Documented by: Glucagon (Glucagon 1 Mg/Ml Syringe) 1 mg IM .X1 PRN PRN Reason: Hypoglycemia Hydrochlorothiazide (Hydrochlorothiazide 12.5mg) 12.5 mg PO DAILY [facility] Last Admin: 02/12/20 09:08 Dose: 12.5 mg Documented by: Sodium Chloride () 1,000 mls @ 60 mls/hr IV .[id number] [facility] Stop: 02/13/20 00:38 Last Admin: 02/11/20 17:42 Dose: 60 mls/hr Documented by: Insulin Glargine (Insulin Glargine 100 Units/Ml Pen) 10 units SC DINNER [facility] Last Admin: 02/11/20 17:53 Dose: Not Given Documented by: Insulin Human Lispro (Insulin Lispro 100 Unit/Ml Insuln.Pen) 0 unit SC ACHS [facility]; Protocol Last Admin: 02/12/20 06:57 Dose: 2 units Documented by: Levothyroxine Sodium (Levothyroxine 137 Mcg Tablet) 137 mcg PO DAILY@0600 [facility] Last Admin: 02/12/20 05:11 Dose: 137 mcg Documented by: Losartan Potassium (Losartan Potassium 50 Mg Tablet) 50 mg PO DAILY [facility] Last Admin: 02/12/20 09:09 Dose: 50 mg Documented by: Melatonin (Melatonin 3 Mg Tablet) 3 mg PO QHS PRN PRN PRN Reason: INSOMNIA Metoprolol Tartrate (Metoprolol Tartrate 25 Mg Tablet) 25 mg PO BID [facility] Last Admin: 02/12/20 09:09 Dose: 25 mg Documented by: Morphine Sulfate (Morphine 2 Mg/Ml Syringe) 2 mg IV Q3H PRN PRN PRN Reason: Pain Score 6-10 Nitroglycerin (Nitroglycerin (Inpatient Use) 0.4 Mg Tab.Subl) 0.4 mg SUBLINGUAL Q5M PRN PRN Reason: CARDIAC/CHEST PAIN Oxycodone HCl (Oxycodone 5 Mg Tablet) 5 mg PO Q4H PRN PRN PRN Reason: Pain Score 4-5 Prochlorperazine Edisylate (Prochlorperazine 10 Mg/2 Ml Vial) 5 mg IV Q4H PRN PRN PRN Reason: Breakthrough Nausea/Vomiting Senna/Docusate Sodium (Senna/Docusate Sodium 1 Tablet) 2 tablet PO BID PRN PRN PRN Reason: Constipation Sodium Chloride (0.9% Saline Lock 10 Ml Syringe) 10 - 40 ml IV UD PRN PRN Reason: SALINE FLUSH Last Admin: 02/12/20 05:19 Dose: 20 ml Documented by: Discharge Activity: Return to Normal Activity Call your doctor if you observe: Fever of 101 or Higher, Coldness, Increased Pain, Change in Color, Inability to urinate, Inability to have a bowel movement, Using more than one pad per hour, Shortness of breath, Fainting spells, Swelling in the ankles, Chest pain, Prolonged hiccoughing, Increased palpitations (irregular heartbeat), Calf discomfort, Uncontrolled pain Home Medications: Medications to take at Discharge Folic Acid 1 mg PO DAILY@0800 09/04/16 Glimepiride [Amaryl] 1 mg PO BID 09/04/16 metFORMIN HCl [Glucophage] 1,000 mg PO BIDCM 09/04/16 Aspirin 81 mg PO DAILY 02/11/20 Losartan/Hydrochlorothiazide [Hyzaar 50-12.5 Tablet] 1 tab PO DAILY 02/11/20 Atenolol [Tenormin (beta glendy)] 25 mg PO BID #0 02/12/20 Atorvastatin Calcium 40 mg PO DAILY #0 02/12/20 Levothyroxine [Synthroid] 112 mcg PO DAILY #30 tab 02/12/20 Following Prescriptions Were Given to Patient: Levothyroxine [Synthroid] 112 mcg PO DAILY #30 tab Transmission Status: Received by [facility] #30 Primary Care Physician: Louise Barahona MD [Primary Care Provider] - Please follow up with your Primary Care Physician in: in 1-2 weeks Please Follow Up With: Louise Barahona MD Medical Necessity - Tobacco Use Smoking Status: Former smoker Tobacco Use: Cigarettes Meaningful Use Info Meaningful Use Diagnoses (Choose all that apply): None applicable OBSV E&M: [id number] Observation care discharge
[2020-02-12 11:15] VITALS: O2SAT 95
[2020-02-12 11:44] LABS: Hemoglobin A1c 8.2 % (3.8-5.6)
[2020-02-12 12:01] LABS: Bedside Glucose 242 mg/dL (70-110)
[2020-02-12 13:44] VITALS: BP 112/68; PULSE 81; RESP 18; TEMP 36.4; O2SAT 94
== END 2020-02-12 13:45 | disposition home or self-care (01) | DRG 310 ==
LOC: ED 09:54 → PCU 11:18
PROVIDERS: Admitting Provider Internal Medicine; Emergency Provider Emergency Medicine; PCP Internal Medicine; Visit Provider Internal Medicine
DX: I48.91 Unspecified atrial fibrillation (principal); E83.42 Hypomagnesemia; E66.9 Obesity, unspecified; Z68.32 Body mass index [BMI] 32.0-32.9, adult; I12.9 Hypertensive chronic kidney disease with stage 1 through stage 4 chronic kidney disease, or unspecified chronic kidney disease; E11.22 Type 2 diabetes mellitus with diabetic chronic kidney disease; N18.30 Chronic kidney disease, stage 3 unspecified; Z87.891 Personal history of nicotine dependence; Z96.642 Presence of left artificial hip joint; Z79.84 Long term (current) use of oral hypoglycemic drugs; Z79.899 Other long term (current) drug therapy; E03.9 Hypothyroidism, unspecified; E78.5 Hyperlipidemia, unspecified; E05.90 Thyrotoxicosis, unspecified without thyrotoxic crisis or storm
CPT/HCPCS: 36415; 71045; 71275; 80048; 80061; 82962; 83036; 83735; 84439; 84443; 84484; 85025; 85379; 87635; 93005; 93306; 99251; 99285; J7030; Q9957; Q9967; A4216; C8929; G0463; J3475; U0002

== ENCOUNTER 2020-06-19 12:22 | Outpatient (RCR) | payer MEDICARE, SELFPAY ==
[2020-02-11 15:25] VITALS: BMI 31.8
== END 2020-06-19 23:59 ==
LOC: IMMUN 12:22
PROVIDERS: PCP Internal Medicine; Visit Provider Family Medicine
DX: Z23 Encounter for immunization (principal)
CPT/HCPCS: 0011A; 0012A

== ENCOUNTER 2022-03-31 10:17 | Emergency (ER) | payer MEDICARE, SELFPAY ==
[2022-03-31 10:19] VITALS: BP 192/92; PULSE 72; RESP 16; TEMP 36.6; O2SAT 95; BMI 30.7
--- NOTE | 2022-03-31 10:32 | EKG12_ITS ---
Test Reason : SOB/BACK PAIN Blood Pressure : / mmHG Vent. Rate : 072 BPM Atrial Rate : 072 BPM P-R Int : 178 ms QRS Dur : 076 ms QT Int : 406 ms P-R-T Axes : 068 012 057 degrees QTc Int : 444 ms Normal sinus rhythm Possible Left atrial enlargement Borderline ECG Confirmed by JANEL ROBLES, KEVIN ([id number]), editor publications RAINER BURTON ([id number]) on 04/02/2022 11:25:41 AM Referred By: CANDIDA/MARIZA Confirmed By:KVEIN ISLAS MD
--- NOTE | 2022-03-31 10:41 | RAD_ITS ---
HISTORY: chest pain. TECHNIQUE: XR Chest 1 View. COMPARISON: 02/11/2020. FINDINGS: CARDIOMEDIASTINAL BORDERS: Cardiac silhouette within normal limits in size. Mediastinal contour unremarkable with calcification of the aortic knob. LUNGS: Radiographically clear. PLEURA: No pleural effusion or pneumothorax seen. OSSEOUS STRUCTURES: Degenerative changes. RAD/Chest 1 View (Portable) IMPRESSION: No acute cardiopulmonary process identified. Electronically Signed: Jessica Emanuel MD at 10:55 EST ,
--- NOTE | 2022-03-31 10:42 | ED.VIS.DYS ---
HPI History of Present Illness Chief Complaint: Shortness of Breath Informant: patient Onset/Context/Timing Onset: Weeks Context: gradual Timing: Intermittent Quality: Positive for Dyspnea on exertion Current Severity: Mild Maximum Severity: Mild Worsened by: Exertion Associated Symptoms Negative for cough, rhinorrhea, post nasal drip, ear pain, fever, sore throat, subjective, chills, sweats, clear sputum, white sputum, yellow sputum, green sputum or other Chest Pain: Positive for None Narrative Narrative: 76-year-old female history of noncemented diabetes and a faulty mitral valve with a murmur that there monitored during for suspected replacement someday. States she has had pain in her back which her shoulder blades intermittently for last couple weeks. She has some exertional dyspnea. No exertional chest pain. No chest pain whatsoever. No history of DVT or PE. She was started on Coumadin about 6 weeks ago due to her mitral valve issue. She is taken Tylenol without relief. She denies any leg pain or swelling. She has no cardiac history besides the valve. PE Risk Factors: Negative for Cancer, OCP + Smoking + > 35, Prior DVT or PE, Recent immobilization, Recent surgery or Recent travel Prior similar symptoms: No Recent Illness/Hospitalization: No PFSH PFSH Home Medications folic acid 1 mg tablet 1 mg PO DAILY@0800 SUPPLEMENT 09/04/16 [History Last Taken 02/11/20] glimepiride 2 mg tablet 1 mg PO BID DM 09/04/16 [History Last Taken 02/11/20] metformin 1,000 mg tablet 1,000 mg PO BIDCM DM 09/04/16 [History Last Taken 02/11/20] aspirin 325 mg tablet 81 mg PO DAILY HEALTH MAINTENANCE 02/11/20 [History Last Taken 02/11/20] losartan 50 mg-hydrochlorothiazide 12.5 mg tablet 1 tab PO DAILY BP 02/11/20 [History Last Taken 02/11/20] atorvastatin 20 mg tablet 40 mg PO DAILY CHOLESTEROL ##0 02/12/20 [Rx Last Taken 02/11/20] levothyroxine 112 mcg tablet 112 mcg PO DAILY #30 tabs 02/12/20 [Rx Last Taken Unknown] atenolol 25 mg tablet 25 mg PO QHS 03/31/22 [History Last Taken Unknown] atenolol 25 mg tablet 50 mg PO BREAKFAST BP 03/31/22 [History Last Taken Unknown] Allergy/AdvReac Type Severity Reaction Status Date / Time benazepril AdvReac cough Verified 03/31/22 10:21 Social History Smoking Status: Former smoker ROS ROS ED ROS Narrative Exertional dyspnea. No chest pain. Review of Systems ROS Unobtainable: Denies due to encephalopathy Constitutional Constitutional ED: Denies chills or fever(s) Eyes Eyes: Denies blurry vision ENT ENT ED: Denies ear pain Cardiovascular Cardiovascular: Denies chest pain, palpitations or racing heartbeat Respiratory/Chest Respiratory/Chest: Reports dyspnea and dyspnea on exertion; Denies cough Gastrointestinal Gastrointestinal: Denies abdominal pain Genitourinary Genitourinary ED: Denies dysuria or hematuria Musculoskeletal Musculoskeletal: Denies arthralgias or back pain Integumentary Denies abscess or Abrasions Neurologic Neurologic: Denies headache(s) Psychiatric Psychiatric: Denies anxiety or depression Endocrine Endocrinology: Denies cold intolerance Hematologic/Lymphatic Hematologic/Lymphatic: Denies easy bleeding or easy bruising Allergic/Immunologic Allergic/Immunologic ED: Denies mouth swelling or tongue swelling EXAM Physical Exam Narrative Exam Narrative: 76-year-old female no acute distress. Vital signs stable afebrile. Pulse ox 95% room air no signs hypoxia. H EENT exam unremarkable. Neck nontender no JVD. No lymphadenopathy. Lungs clear to auscultation bilaterally. Heart regular rate and rhythm rate about 70. 3/6 diastolic murmur. Abdomen soft nontender normal bowel sounds no peritoneal signs. Moving all 4 extremities. Calves are nontender without edema or cords. Neurologically she is awake and alert with no focal motor deficits. Const Vital Signs: 03/31/22 10:19 03/31/22 10:32 03/31/22 11:22 Temperature 97.8 F Temperature Source Temporal Pulse Rate 72 69 Respiratory Rate 16 18 Blood Pressure 192/92 H Blood Pressure Mean 125 Pulse Ox 95 94 Oxygen Delivery Method Room Air Room Air Room Air 03/31/22 11:54 03/31/22 12:02 Temperature Temperature Source Pulse Rate 71 Respiratory Rate 18 Blood Pressure 169/87 H Blood Pressure Mean 114 Pulse Ox 95 Oxygen Delivery Method Room Air Positive well nourished and well developed; Negative for obese, cachectic, contractures or unkempt General Appearance ED: well developed and NAD; Negative for unkempt, cachectic, contractures or pallor Nutritional Appearance: Negative for cachectic or obese HEENT Reports moist mucous membranes; Denies dry mucous membranes atraumatic; Negative for trauma or tenderness Mouth ED: No dry mucous membranes Mouth: No dry mucous membranes Eyes PERRL and EOMs intact bilaterally General Eye ED: Negative for pale conjunctiva or scleral icterus Neck no lymphadenopathy, supple, no meningeal signs and no JVD General: Negative for tenderness Lymph Lymphatic: Negative for other Chest Wall Chest: Negative for other Resp normal respiratory effort and clear to auscultation bilaterally Effort and Inspection: Negative for pain with movement Auscultation: Negative for rales, rhonchi or wheezes Cardio regular rate, regular rhythm, S1 normal heart sound and S2 normal heart sound; Negative for no murmurs Cardio Narrative: 3/6 diastolic murmur. Patient has a known history of a murmur. Rate: Negative for bradycardia or tachycardic GI non-tender, non-distended and no masses Auscultation: normoactive bowel sounds Palpation: soft; Negative for tender or guarding Back/Spine no CVA tenderness and normal to inspection General Back: Negative for CVA tenderness Extremity normal to inspection General Extremety ED: Negative for edema or tenderness General Extremity: Negative for edema Neuro oriented x3 and CN's II-XII intact bilaterally Sensorium / Orientation: alert, oriented to person, oriented to place and oriented to time; Negative for orientation impaired, confused, lethargic or stuporous Speech: speech normal Motor Exam: strength 5/5 throughout; Negative for general weakness or strength abnormal Psych mental status grossly normal Appearance: Negative for unkempt Attitude: No agitated Mood & Affect: Negative for depressed, anxious or tearful Thought Process: normal thought process Skin no wounds and skin turgor normal General Skin Exam: Negative for jaundice or pallor Lesions: no lesions Rashes: no rashes Trauma: Negative for abrasion, laceration or puncture MDM MDM MDM Narrative Medical decision making narrative: Patient with 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 On Coumadin for that. Presents with exertional dyspnea and atypical nonreproducible back pain. She undergo cardiac work-up. She had a CTA in the past which showed no dissection, no aneurysm and no PE. Lab Data Attestation: I reviewed the patient's lab results. Lab results narrative: CBC shows a White count 8. H&H 13 and 42. Platelet count is low at 79,000. Electrolytes gap is 7. Normal BUN 18 creatinine 0.9. Glucose 218. Troponin is normal at 10. She is on Coumadin her INR subtherapeutic 1.9. Chest x-ray unremarkable normal aortic knob and cardiac silhouette. CTA showed a very small left pleural effusion. No PE. No dissection. Indiscriminate pulmonary nodule. All discussed with patient and family. They are comfortable with her being discharged home. Clinically she is doing very well at 12:25 PM. Her exam remains normal. Labs: Laboratory Results - last 24 hr 03/31/22 03/31/22 03/31/22 10:30 10:30 10:30 WBC 8.9 RBC 5.06 Hgb 13.7 Hct 42.6 MCV 84.2 MCH 27.1 MCHC 32.2 RDW Std Deviation 42.7 RDW Coeff of Marcie 14.0 Plt Count 79 L MPV 11.1 Immature Gran % (Auto) 0.500 Neut % (Auto) 65.9 Lymph % (Auto) 24.1 Lewis % (Auto) 7.2 Eos % (Auto) 1.8 Baso % (Auto) 0.5 Absolute Neuts (auto) 5.9 Absolute Lymphs (auto) 2.14 Nucleated RBC % 0 Platelet Estimate SLT DEC PT 21.1 H INR 1.9 Sodium 136 Potassium 4.3 Chloride 102 Carbon Dioxide 27.0 Anion Gap 7 BUN 18 Creatinine 0.96 Estim Creat Clear Calc 47.40 Est GFR (MDRD) Af Amer 72 Est GFR (MDRD) Non-Af 60 BUN/Creatinine Ratio 18.7 Glucose 218 H Calcium 9.1 Troponin I High Sens 10 Radiography Chest X-Ray - ED: 1 View, Read by ED Physician, Read by Radiologist, Heart, Lungs, Mediastinum, Bony Structures, No Acute Disease and Chronic Changes Diagnostic Testing: Clinical Impression(s) from Imaging Studies Chest X-Ray 03/31/22 10:41 IMPRESSION: No acute cardiopulmonary process identified. Electronically Signed: Jessica Emanuel MD at 10:55 EST Reading Location ID and State: [facility] / [place] Tel , Service support , Chest CTA 03/31/22 11:13 IMPRESSION: No evidence of thoracic aortic aneurysm, aortic dissection, or pulmonary embolism. Very mild pulmonary edema with trace left pleural effusion. New 8 mm right lower lobe groundglass pulmonary nodule. Stable bilateral noncalcified pulmonary nodules. Recommend follow-up. Electronically Signed: Jessica Emanuel MD at 12:11 EST , Chest x-ray, portable, single view shows no acute abnormality. Interpreted both by myself and the radiologist. Rhythm Strip Rhythm Strip: Sinus Rhythm Rate: 72 Ectopy: None EKG Initial EKG: Attestation: I personally reviewed and interpreted this EKG as follows: Interpretation: Sinus Rhythm and No Acute Injury Pattern Comments: Normal sinus rhythm rate of 72 no acute signs of [place], ischemia nor dysrhythmia. Unchanged from prior EKG from 2019 Prior EKG tracings: available for review Prior: Unchanged Discharge Plan Triage Chief Complaint: Shortness of Breath ED Provider: Devan Brody Dx/Rx/DC Orders Clinical Impression: Pleural effusion Instructions: ED Pleural Effusion Prescriptions: No Action glimepiride 2 MG tablet 1 mg PO BID metformin 1,000 MG tablet 1,000 mg PO BIDCM folic acid 1 MG tablet 1 mg PO DAILY@0800 losartan-hydrochlorothiazide 1 EACH tablet 1 tab PO DAILY aspirin 325 MG tablet 81 mg PO DAILY levothyroxine 112 MCG tablet 112 mcg PO DAILY Qty: 30 0RF atorvastatin 20 MG tablet 40 mg PO DAILY Qty: 0 0RF atenolol 25 mg Tablet 25 mg PO QHS atenolol 25 MG tablet 50 mg PO BREAKFAST Rx Instructions: Hold if SBP 90 OR HR <60/m Primary Care Provider: Louise Barahona Referrals: Louise Barahona MD [Primary Care Provider] - As Needed Activity Restrictions/Additional Instructions: Your tests including your blood work, chest x-ray, EKG and heart enzymes were all unremarkable. The CAT scan picked up a very small left pleural effusion. Small amount of fluid between the lung and the lining. Most likely causing your symptoms. There is no blood clot nor any signs of an aortic dissection. This should resolve on its own. Follow-up with your primary care physician as needed. Continue your current medications and your Coumadin. Disposition Disposition: Home, Self Care
[2022-03-31 10:48] LABS: Absolute Lymphocyte Count 2.14 X10^3/uL (0.83-4.51); Absolute Neutrophil Count 5.9 X10^3/uL (2.0-7.7); Basophil# 0.04 X10^3/uL; Basophil% 0.5 % (0-1); Eosinophil# 0.16 X10^3/uL; Eosinophils% 1.8 % (0-5); Hematocrit 42.6 % (37-47); Hemoglobin 13.7 g/dL (12.0-15.0); Lymphocyte # 2.14 X10^3/ul (0.83-4.51); Lymphocyte % 24.1 % (19-41); Mean Corp Hgb Conc 32.2 g/dL (32-36); Mean Corpuscular Hgb 27.1 pg (27.0-32.0); Mean Corpuscular Volume 84.2 fL (81-99); Mean Platelet Vol. 11.1 fl (6.2-12.0); Monocyte# 0.64 X10^3/uL; Monocyte% 7.2 % (0-10); NRBC Flagged by Analyzer 0 % (0-5); Neutrophil # 5.85 X10^3/uL (2.7-7.7); Neutrophil % 65.9 % (47-70); POSITIVE COUNT YES; Platelet Count 79 K/mm3 (150-450); RBC Distribution Width SD 42.7 fl (35.1-43.9); Red Blood Count 5.06 M/mm3 (4.2-5.4); White Blood Count 8.9 K/mm3 (4.4-11.0)
[2022-03-31 10:49] LABS: Differential Indicated SCAN CRITERIA MET
[2022-03-31 10:58] LABS: International Normalized Ratio 1.9; Prothrombin Time (Protime)PT. 21.1 SECONDS (11.7-14.9)
[2022-03-31 11:03] LABS: Anion Gap 7 (5-15); BUN 18 mg/dL (7-18); BUN/Creat Ratio 18.7 RATIO (10-20); Calcium,Total 9.1 mg/dL (8.5-10.1); Chloride 102 mmol/L (98-107); Creatinine, Serum 0.96 mg/dL (0.55-1.02); EST Glomerular Filtration Rate 60 mL/min (>60); Est Glom Filt Rate - Afr Amer 72 mL/min (>60); Glucose 218 mg/dL (74-106); Potassium 4.3 mmol/L (3.5-5.1); Sodium Level 136 mmol/L (136-145); Troponin-I HS (w/2H Reflex) 10 pg/mL (3.0-54.0)
[2022-03-31 11:11] LABS: Platelet Estimate SLT DEC (ADEQ)
--- NOTE | 2022-03-31 11:13 | CT_ITS ---
HISTORY: aortic dissection? TECHNIQUE: CT angiogram of the chest was performed after the intravenous administration of 100 mL Isovue-370. Post-processing of the angiographic images was performed with multiplanar reformation and 3D reconstruction. Individualized dose optimization techniques were used for this CT. 1283 images. COMPARISON: XR same day, CT 8 02/11/2020. FINDINGS: CENTRAL AIRWAYS: Patent. LUNGS: 3 mm left upper lobe nodule. 2 mm groundglass left upper lobe nodule. 3 mm and 4 mm right lower lobe nodules. Mild lower lobe septal thickening with groundglass opacities measuring up to 8 mm in the right lower lobe. PLEURA: Trace left pleural effusion. HEART/PERICARDIUM: Heart within normal limits in size. Coronary artery and mitral valvular disease noted. No pericardial effusion. PULMONARY ARTERIES: No filling defect. AORTA/VESSELS: No thoracic aortic aneurysm or dissection flap. Mild atherosclerosis. MEDIASTINUM/SABIHA: Stable borderline enlarged right hilar and mediastinal lymph nodes. OSSEOUS STRUCTURES: Degenerative change. UPPER ABDOMEN: Unchanged left adrenal nodule and fatty lesion in the upper pole of the right kidney. 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 CT/CTA Chest W/WO Contrast IMPRESSION: No evidence of thoracic aortic aneurysm, aortic dissection, or pulmonary embolism. Very mild pulmonary edema with trace left pleural effusion. New 8 mm right lower lobe groundglass pulmonary nodule. Stable bilateral noncalcified pulmonary nodules. Recommend follow-up. Electronically Signed: Jessica Emanuel MD at 12:11 EST ,
[2022-03-31 11:22] VITALS: PULSE 69; RESP 18; O2SAT 94
[2022-03-31 11:54] VITALS: BP 169/87
[2022-03-31 12:02] VITALS: PULSE 71; RESP 18; O2SAT 95
[2022-03-31 12:40] LABS: Reflex Troponin-HS? (from REC) Y
== END 2022-03-31 12:34 | disposition home or self-care (01) ==
PROVIDERS: Emergency Provider Emergency Medicine; PCP Internal Medicine; Visit Provider Emergency Medicine
DX: J90 Pleural effusion, not elsewhere classified (principal); Z87.891 Personal history of nicotine dependence
CPT/HCPCS: 71045; 71275; 80048; 84484; 85025; 85610; 93005; 99284; Q9967; A4216

== ENCOUNTER 2022-10-27 19:48 | Emergency (ER) | payer MEDICARE, SELFPAY ==
[2022-10-27 19:50] VITALS: BP 154/75; PULSE 69; RESP 18; TEMP 36.5; O2SAT 95
--- NOTE | 2022-10-27 20:05 | CT_ITS ---
STUDY: CT BRAIN WITHOUT CONTRAST REASON FOR EXAM: Female, 77 years old. [facility] on coumadin, STAT CT and STAT read -- STAT read, Dr Mcbride called optometric technologist at 2004 Individualized dose optimization techniques were used for this CT. TECHNIQUE: Transaxial CT imaging of the brain was performed without administration of intravenous contrast material. COMPARISON: None FINDINGS: There are calcifications around the carotid artery. These are noted in the cavernous carotid arteries. Normal calvarium. Normal soft tissues. There is mild cerebral atrophy with widening of the extra-axial spaces and ventricular dilatation. Normal white matter tracts of the cerebral hemispheres. Normal basal ganglia and thalami. Normal brainstem. There is mild cerebellar atrophy. There is no intracranial hemorrhage. There are no findings of an acute ischemic infarction. Normal visualized paranasal sinuses. ASPECTS Score for Acute Strokes: 01/28 CT/Brain/Head without Contrast IMPRESSION: There are no acute findings. Electronically Signed: Arnie Peter MD at 20:53 EDT ,
--- NOTE | 2022-10-27 20:15 | RAD_ITS ---
STUDY: XR Hand Min 3 Views REASON FOR EXAM: Female, 77 years old. left finger deformity TECHNIQUE: XR Hand Min 3 Views LEFT COMPARISON: None. FINDINGS: Normal radiocarpal articulation. Normal distal radioulnar joint. Normal visualized carpal bones. Normal carpal articulations Normal carpometacarpal articulation of the thumb. Normal second through fifth carpometacarpal joints. Normal metacarpi. Normal metacarpophalangeal joint of the thumb. There is degenerative arthrosis of the interphalangeal joint of the thumb with articular joint space narrowing. Normal proximal and distal phalanges of the thumb. Normal metacarpophalangeal joints of the second through fifth fingers. There is diffuse articular joint space narrowing of the proximal and distal interphalangeal joints of the second through fifth fingers, but without erosive changes or periarticular soft tissue swelling. Normal phalanges of the second through fifth fingers. There is a dislocation of the fourth digit at the level of the fourth PIP joint. The distal digit is dislocated medially. The soft tissue structures are unremarkable. RAD/Hand Min 3 Views IMPRESSION: There is a dislocation of the fourth digit at the level of the fourth PIP joint. The distal digit is dislocated medially. Electronically Signed: Arnie Peter MD at 20:29 EDT ,
[2022-10-27] MEDS: Lidocaine 1% (20 ml mdv) 20 ML Vial 5 ML INFILT (20:30)
--- NOTE | 2022-10-27 20:50 | RAD_ITS ---
INDICATION: Status post reduction, left ring finger EXAMINATION/TECHNIQUE: X-RAY - LEFT HAND XR Fingers Min 2 Views COMPARISON: None. FINDINGS: Interval reduction of previously described dislocation of the fourth proximal interphalangeal joint near anatomic alignment. No blastic or lytic lesions. No degenerative changes are seen. Soft tissue swelling of the fourth digit. RAD/Finger(s) Min 2 Views IMPRESSION: Interval reduction of previously described dislocation of the fourth proximal interphalangeal joint near anatomic alignment. Electronically Signed: Aleks Don MD at 22:31 EDT ,
--- NOTE | 2022-10-27 21:16 | EDS_ITS ---
HPI History of Present Illness Chief Complaint: Fall Narrative Narrative: Patient is a 77-year-old female who fell down 2 steps this evening and is on warfarin secondary to history of rheumatic heart disease. Patient has no headache or neck pain. Patient came in by EMS. Patient does have a deformity to her left ring finger. Patient is right-hand dominant. She does have her rings on her left ring finger as well. Patient has abrasions to her right knee, right foot, forehead, and her left hand. 2 daughters are at bedside. Patient lives at home by herself with an animal. Patient's had no loss of consciousness, no nausea vomiting. This fall occurred at her daughter's house t hat she was visiting this evening. The main concern was the left ring finger deformity. Patient states the left ring finger does not hurt unless she start trying to move it, it is throbbing. Patient has no chest pain or shortness of breath. Patient had no syncopal episode. Patient had no other acute complaints at this time. Patient came in by EMS with no cervical collar. Patient denies headache or neck pain. Patient is alert and orient x3, GCS of 15. PFSH PFSH Home Medications glimepiride 2 mg tablet 1 mg PO BID DM 09/04/16 [History Last Taken 02/11/20] metformin 1,000 mg tablet 1,000 mg PO BIDCM DM 09/04/16 [History Last Taken 02/11/20] aspirin 325 mg tablet 81 mg PO DAILY HEALTH MAINTENANCE 02/11/20 [History Last Taken 02/11/20] losartan 50 mg-hydrochlorothiazide 12.5 mg tablet 1 tab PO DAILY BP 02/11/20 [History Last Taken 02/11/20] atorvastatin 20 mg tablet 40 mg (2 x 20 mg) PO DAILY CHOLESTEROL ##0 02/12/20 [Rx Last Taken 02/11/20] levothyroxine 112 mcg tablet 112 mcg PO DAILY #30 tabs 02/12/20 [Rx Last Taken Unknown] atenolol 25 mg tablet 25 mg PO QHS 03/31/22 [History Last Taken Unknown] atenolol 25 mg tablet 50 mg PO BREAKFAST BP 03/31/22 [History Last Taken Unknown] levothyroxine 137 mcg tablet 137 mcg PO DAILY 10/27/22 [History Last Taken Unknown] sertraline 50 mg tablet 50 mg PO Q24H 10/27/22 [History Last Taken Unknown] warfarin 5 mg tablet 5 mg PO SUTUTHSA 10/27/22 [History Last Taken Unknown] warfarin 7.5 mg tablet 7.5 mg PO QMWF 10/27/22 [History Last Taken Unknown] Allergy/AdvReac Type Severity Reaction Status Date / Time benazepril AdvReac cough Verified 03/31/22 10:21 Social History Smoking Status: Former smoker ROS ROS ED ROS Narrative REVIEW OF SYSTEMS: Unless otherwise stated in this report the patient's positive and negative responses for review of systems for constitutional, eyes, ENT, cardiovascular, respiratory, gastrointestinal, neurological, , musculoskeletal, and integument systems and related systems to the presenting problem are either stated in the history of present illness or were not pertinent or were negative for the symptoms and/or complaints related to the presenting medical problem. EXAM Physical Exam Narrative Exam Narrative: Vital signs reviewed and patient is not hypoxic. Primary survey. patient's airway is intact, patient is talking without difficulty. Patient has no cervical collar on. The patient's breathing is equal bilateral, trachea midline, equal chest rise. Patient's circulation: his heart rate is regular rate and rhythm, patient has equal radial and dorsalis pedis pulses, equal, symmetrical. Patient has no obvious distracting injury except to her left ring finger with probable dislocation, no other deformity. No disability or environmental issue. Patient has no midline or paracervical tenderness to palpation. Patient does not smell of alcohol. Patient's not under the influence of alcohol or drugs. Patient has no midline CT LS pain. Patient has no paraspinal tenderness to palpation. Patient has no rash, laceration, or abrasion. Patient lying flat. See secondary survey. General: The patient appears well and in no apparent distress. Patient is resting comfortably on cart. Not toxic, lethargic, or listless. Skin: Warm, dry, no pallor noted. There is no rash noted. Patient has multiple abrasions noted to her left forehead, dorsal aspect of her left hand, right knee, dorsal aspect of her right foot. Head: Normocephalic, atraumatic, no midline or paracervical tenderness to palpation. Full range of motion of cervical spine no difficulty. Patient has no facial bony tenderness to palpation. Eye: Normal conjunctiva, no drainage, EOMI. PERRL. 4/2, equal, bilateral. Ears, Nose, Mouth, and Throat: oral mucosa is moist. Nares patent. Mouth without vesicles. Dentition intact. Cardiovascular: Regular Rate and Rhythm, no murmurs, gallops, or rubs Respiratory: Patient is in no distress, no accessory muscle use, lungs are clear to auscultation, no wheezing, rales or rhonchi Back: non-tender, no CVA tenderness bilaterally to percussion. NO CTLS midline or paraspinal tenderness to palpation. GI: Soft, no tenderness to palpation, no masses appreciated. No rebound, guarding, or rigidity noted. Musculoskeletal: The patient has full range of motion of all extremities and joints with no difficulty except her left ring finger. Patient's left ring finger has ulnar displacement at the PIP joint of the left ring finger, probable dislocation. Patient has mild to moderate tenderness palpation to the PIP joint of the left ring finger. Mild tenderness to palpation distally from the left PIP joint of the left ring finger. Rings intact. Full range of motion of right knee, ankle, foot with no difficulty or pain. Patient has no motor, no sensory deficits. Neurological: A&O x4, normal speech, no focal neurological deficits. GCS of 15. Psychiatric: Cooperative Const Vital Signs: 10/27/22 19:50 10/27/22 20:02 10/27/22 21:41 Temperature 97.7 F L Temperature Source Temporal Pulse Rate 69 67 Respiratory Rate 18 18 Respiratory Effort Normal Non-Labored Respiratory Depth Normal Respiratory Pattern Normal Blood Pressure 154/75 H 112/74 Blood Pressure Mean 101 86 Pulse Ox 95 97 Oxygen Delivery Method Room Air Room Air Room Air MDM MDM MDM Narrative Medical decision making narrative: STAT CT of the brain was done secondary to trauma, head injury on anticoagulation. Patient also had an x-ray of her left ring finger. CT of the brain showed no acute abnormality. No indication for cervical spine x-ray or CT. Patient had dislocation of the PIP joint of the left ring finger. See procedure note. Patient had successful reduction of the left PIP joint of left ring finger. Patient was placed in aluminum finger splint. Patient had all wounds cleaned by nursing staff, see nursing notes. Patient had bacitracin and dry dressing placed on all abrasions. Significant amount of time and multiple bedside visits were made initially assessing patient, assessing her after CT of the brain, reviewing x-ray, reducing the left ring finger, and then discussing patient's care in the ER and follow-up treatment needed along with course of action needed to take at home in the next several days. Patient wanted nothing for pain. No questions at discharge. Patient understands use [id number] Tylenol, ice, and follow-up with PCP if any other acute abnormalities or return to the ER as needed. Procedure note. Left ring finger dislocation. Patient had a digital block of the left ring finger with 1% lidocaine, 4 cc used. The area was cleaned, prepped, draped in normal sterile fashion. Patient had appropriate anesthetic effect with digital block at the base of the left finger done by myself. Procedure note: Reduction of left ring finger dislocation. With traction, patient had successful reduction of the PIP joint of the left ring finger. Follow-up x-ray showed appropriate alignment of the PIP joint of the left ring finger. Patient Tolerated procedure well without difficulty. Patient's 2 daughters were at bedside. Patient was then placed in a aluminum finger splint. Splint was assisted with Dr. Mcbride. The patient was neurovascular intact before and after the splint was placed. The affected bones/injured area had proper alignment in a splint. Education on splint care at home was given at bedside. Patient and family had no questions at disposition. Radiography Diagnostic Testing: Clinical Impression(s) from Imaging Studies Brain CT 10/27/22 20:05 IMPRESSION: There are no acute findings. Electronically Signed: Arnie Peter MD at 20:53 EDT , Hand X-Ray 10/27/22 20:15 IMPRESSION: There is a dislocation of the fourth digit at the level of the fourth PIP joint. The distal digit is dislocated medially. Electronically Signed: Arnie Peter MD at 20:29 EDT , Finger X-Ray 10/27/22 20:50 IMPRESSION: Interval reduction of previously described dislocation of the fourth proximal interphalangeal joint near anatomic alignment. Electronically Signed: Aleks Don MD at 22:31 EDT , Critical Care Time Critical Care Time: Yes Critical care time (excluding procedures): 30-74 minutes (32 minutes due to HIA and trauma procedures.) Discharge Plan Triage Chief Complaint: Fall ED Provider: Armani Mcbride Dx/Rx/DC Orders Clinical Impression: Need for Tdap vaccination, Dislocation closed, finger, CHI (closed head injury), Abrasions of multiple sites, Fall (on) (from) other stairs and steps, initial encounter Instructions: Self-Care for Strains and Sprains, Tdap Vaccine, ED Mechanical Fall, ED Finger Dislocation, ED Head Injury (Adult), ED RICE, ED Splints and Casts Prescriptions: No Action glimepiride 2 MG tablet 1 mg PO BID metformin 1,000 MG tablet 1,000 mg PO BIDCM losartan-hydrochlorothiazide 1 EACH tablet 1 tab PO DAILY aspirin 325 MG tablet 81 mg PO DAILY levothyroxine 112 MCG tablet 112 mcg PO DAILY Qty: 30 0RF atorvastatin 20 MG tablet 40 mg PO DAILY Qty: 0 0RF atenolol 25 mg Tablet 25 mg PO QHS atenolol 25 MG tablet 50 mg PO BREAKFAST Rx Instructions: Hold if SBP 90 OR HR <60/m warfarin 5 mg tablet 5 mg PO [facility] Patient Comments: Take 1 tablet by mouth once daily. warfarin 7.5 mg tablet 7.5 mg PO QMWF levothyroxine 137 mcg tablet 137 mcg PO DAILY sertraline 50 mg tablet 50 mg PO Q24H Primary Care Provider: Louise Barahona Referrals: Louise Barahona MD [Primary Care Provider] - Activity Restrictions/Additional Instructions: Use ice 20 minutes on, 20 minutes off. Use topical antibiotic ointment 3-4 times a day as discussed. Wear your aluminum finger splint for the next 1 or 2 weeks. Close head injury instructions were discussed at bedside and on discharge paperwork. Follow-up with PCP if any other acute concerns. Use Tylenol as needed for pain every 4 hours. Continue taking warfarin and other medications as prescribed. Disposition Disposition: Home, Self Care Discharge Date/Time: 10/27/22 22:45
[2022-10-27 21:41] VITALS: BP 112/74; PULSE 67; RESP 18; O2SAT 97
== END 2022-10-27 22:45 | disposition home or self-care (01) ==
PROVIDERS: Emergency Provider Emergency Medicine; PCP Internal Medicine; Visit Provider Emergency Medicine
DX: S63.285A Dislocation of proximal interphalangeal joint of left ring finger, initial encounter (principal); S09.90XA Unspecified injury of head, initial encounter; S80.211A Abrasion, right knee, initial encounter; Z87.891 Personal history of nicotine dependence; S60.512A Abrasion of left hand, initial encounter; Z79.01 Long term (current) use of anticoagulants; S90.811A Abrasion, right foot, initial encounter; S00.81XA Abrasion of other part of head, initial encounter; W10.9XXA Fall (on) (from) unspecified stairs and steps, initial encounter
CPT/HCPCS: 26770; 70450; 73130; 73140; 99284

== ENCOUNTER → 2023-08-14 | Outpatient (CLI) | payer MEDICARE, SELFPAY ==
--- NOTE | 2023-08-14 08:49 | CR.ITP_ITS ---
Diagnosis General Information Admitting Diagnosis: CABG x 1, Aortic and Mitral Valve Replacement, and LAAC (atrialclip) Secondary Diagnosis: HTN, HLD Personal Learning Style:: Audio/Visual and Written Barriers to Learning: Vision Impairment Stage of change r/t lifestyle modifications:: Action Gave educational material for:: Treating Heart Disease, How The Heart Works, What it means to have Heart Disease, How Coronary Artery Disease is Diagnosed, Heart Procedures, What Heart Medications Do, Risk Factors & Modifications, Living an Active Life, Nutrition, Emotions & Heart Disease, Stress Management & Relaxation and Sleep Disorders & Heart Disease Education/Goals Individual Counseling: Initial Assessment: Abnormal Cholesterol Levels, High Blood Pressure, Overweight/Obesity and Diabetes Cardiac Rehabilitation Goals Personal Goals: Initial Assessment: Improve management of stress and emotions, Improve energy level, Participate in home exercise program, Get back to work, or to resume activities faster, Improve muscle strength and endurance, Improve diet and eating habits (eat healthier) and Control risk factors (learn risk factor modification) Scale for measuring improvement of personal goals Diagnosis & Disease Process Outcomes/Goals: Pt IDs own risk factors & lifestyle modifications by Session 10, Verbalizes symptoms of angina & response by session 3. and Pt independently manages Plan/Interventions: Assist Pt to ID & engage in lifestyle modification to reduce CVD risk, Instruct on individual risk factors, Review symptoms of angina & emergency actions and Review secondary diagnosis & identify educational needs. Safety Referral to Physical Therapy: No Referral to [facility] Case Management: No Fall Risk Assessed:: Yes Assistive Devices:: None Exercise - Initial Assessment Visit Date of Eval: 08/14/23 Session #:: 0 (pre-program evaluation) Mets: Pre-: >5 METS for 30 minutes by discharge Physician Prescribed Exercise Modalities: Treadmill, Airdyne and NuStep Frequency: 3x/week for 12 weeks [36 sessions] Intensity: 60-80% of age predicted maximum heart rate reserve Duration: 30 - 45 minutes Current METSs:: 3.0 Target Heart Rate:: 94-122 Resting Blood Pressure: 124/78 EKG Type: Atrial Fibrillation - cardioversion to a NSR at present Outcomes & Goals Goals:: Verbalizes understanding of THR, RPE & goal METS by session 6, Documents in home exercise log/reports 30 min aerobic 5 day/wk by DC and Demonstrates accurate pulse taking by DC Intervention & Plan Exercise Program Goals: Instruct on personal THR & RPE, Instruct on MET level & personal MET goal, Show patient to take own pulse /validate performance until accurate and Instruct on home exercise Physical Activity Home Exercise Physical Activity - Home Exercise: Safe Exercise, Warm-up, Self-monitoring, Cool-Down, Home Exercise > 30 min Daily and Sitting Time <3 hours/daily Outcomes & Goals Outcomes/Goals: Demonstrates correct Warm-up/exercise Cool-Down (S3) if = 2.5 METs, Verbalizes symptoms of exercise intolerance by Session 3 (S3) and Demonstrate safe equipment use (S3) & follows exercise prescrition (6) Intervention & Plan Plan/Intervention: Instruct warm-up & cool-down if exercising at > 2 METs, Instruct on symptoms of exercise intolerance & actions to take, Instruct & monitor on saf and Assess intial functional capacity & safety risk Nutrition - Initial Assessment Program Goals Nutrition Program Goals Patient has diagnosis of Hyperlipidemia (ICD E78)?: Yes Visit Date of Eval: 08/14/23 Session #:: 0 (pre-program evaluation) Cholesterol/Lipids (Other Core Measures) Determine presence & major risk factors that modify LDL goal: Hypertension or hypertensive medication and Age men > 45 years; women >/= 55 years Outcomes/Goals: Pt IDs own risk factors & lifestyle modifications by Session 10, Verbalizes symptoms of angina & response by session 3. and Pt independently manages Intervention/Plan: Instruct on personal lipid levels & lipid goals/NCEP guidelines and Instruct on cholesterol Referral to dietitian:: Yes Diabetes (Other Core Measures) Diabetes Type: Diagnosis Type II ICD-10 E11 Insulin dependent injection/pump?: Yes Non-Insulin Dependent?: Yes Do you monitor your blood sugar at home?: Yes Referral to Diabetic Clinic:: Yes Outcomes/Goals:: Able to state symptoms of, Able to state and Able to state Intervention/Plan:: Instruct on, Refer to and Instruct on Weight Mgt (Other Care) Not Applicable: Yes Height: 5 ft 5.28 in Weight:: 190 lb BMI: 31.3 Diagnosis Overweight/Obesity BMI> 30% ICD-10 E66: Yes Diagnosis High BMI/Morbid Obesity BMI> 35% ICD-10 Z68: No Outcomes/Goals: Pt sets, maintains & shows weight loss goal & trend during rehab Intervention/Plan: Instruct on ideal BMI & set weight loss goal w/patient, Assist pt to ID & incorporate diet changes for weight loss by S9, Refer to Structured Weight Loss program as appropriate and Encourage goal of using 250- 300dcal per session for weight loss Healthy Eating Habits Will attend diet classes:: Yes Outcomes/Goals:: Consume diet rich in vegs,fruits,whole grain/high fiber,fish,lean meat and Limit sat/trans fats,cholesterol & added salts & sugars Intervention/Plan:: Assess current eating habits Education Gave educational materials for:: Signs & symptoms of hypoglycemia, Signs & sy mptoms of hyperglycemia, Relate diabetes to coronary artery disease and Healthy eating Core - Initial Assessment Visit Date of Eval: 08/14/23 Session #:: 0 (pre-program evaluation) Medication Compliance Preventative Medication(s):: Aspirin, Statin/lipid, Beta glendy and Warfarin/Coumadin H/O mental health issues: depression, anxiety, or addiction?: Yes Doesn?t believe in the benefits of treatment?: No Believes medications are unnecessary or harmful?: No Has a concern about medication side effects?: No Expresses concern over the cost of medications?: No Outcomes/Goals: Verbalizes medications,desired effect & common side effects @ DC, Pt self-reports following medication regimen and Keeps card in wallet w/medications listed by DC Interventions/plans: Instruct on medication effects & side effects, Review medication list w/patient every two weeks and Instruct importance of taking meds as ordered & assist problem solving Tobacco Use Tobacco Use: Non-smoker Hypertension Hypertension Diagnosis:: Hypertension ICD-10 I10 Resting Blood Pressure:: 124/78 [place] [employer] Hypertension Guidelines Outcomes/Goals: Able to verbalize/achieve optimal blood pressure <130/80 and Incorporates diet changes & exercise for blood pressure control by DC Interventions/plan: Instruct on optimal blood pressure, hypertension & medications and Instruct on effects of sodium, alcohol, stress, exercise &hypertension Tobacco Cessation Referral Smoking Cessation Referral:: No Individual Education/Counseling:: No Education Schedule Given:: Yes Psychosocial - Initial Assess VIsit Date of Eval: 08/14/23 Session #:: 0 (pre-program evaluation) Not Applicable: Yes History of Emotional Disorders: Anxious Target Goals Target Goals Psychosocial Test Tool Used:: Pati Jorgensen QOL Cardiac and PHQ-9 Questionnaire phq-9 Severity Referral to Behavioral Health PS - Interventions: No: Referral to Behavioral Health if PHQ-9 score >9: and No: Referral to [facility] Outcomes/Goals: See list Psychosocial Outcomes/Goals:: ID's personal stressors & 2 strategies to manage stress by discharge Intervention/Plan: See List Interventions/Plan:: Assess stressors,coping strategies & signs of derpression on admission, Instruct/assist pt to develop coping & personal stress Mgt strategies, Instruct patient to recognize signs & symptoms of depression and Instruct patient to recog Patient Health Questionnaire PHQ-9 Screening Initial Assessment: 1. Little interest or pleasure in doing things: Not at all 2. Feeling down, depressed, or hopeless: Not at all 3. Trouble falling or staying asleep, or sleeping too much: Several days 4. Feeling tired or having little energy: Several days 5. Poor appetite or overeating: Not at all 6. Feeling bad about yourself -- or that you are a failure or have let yourself or your family down: Not at all 7. Trouble concentrating on things, such as reading the newspaper or watching television: Not at all 8. Moving or speaking so slowly that other people could have noticed. Or the opposite - being so fidgety or restless that you have been moving around a lot more than usual: Not at all 9. Thoughts that you would be better off , or of hurting yourself in some way: Not at all How difficult have these problems made it for you to do your work, take care of things at home, or get along with other people?: Somewhat difficult Total Score: 2 DAT-Q SV Test Statements CAD is a disease of the arteries in the heart: False Examples of risk factors for heart disease: True Angina is chest pain or discomfort: True The benefits of resistance training include: True Eating more meat and dairy products: I Don't Know Anti-platelet medications such as aspirin are important: True The only effective way to manage stress: False An exercise warm-up slowly increases heart rate: True Prepared, processed foods usually have high sodium: True Depression is common after a heart attack: True The statin medications lower cholesterol: True To control blood pressure, lower the amount of sodium: True If someone gets chest discomfort during walking: False Transfats are partially hydrogenated vegetable oils: True Sleep apnea that is not treated increases the risk: False To control cholesterol, one should become a vegetarian: False Someone knows if he/she is exercising at the right level: True Diabetes cannot be prevented with exercise & health eating: False Stress is a large risk for heart attack: True A diet that can help lower blood pressure is rich in: True Total Score Total Correct Responses: 19 Self-Efficacy 6-Item Scale Initial Assessment: We would like to know how confident you are in doing certain activities. Please select your confidence level for: Fatigue Select Number: 5 Physical Discomfort or Pain Select Number: 9 Emotional Distress Select Number: 9 Other Symptoms or Health Problems Select Number: 6 Different Tasks and Activities Select Number: 8 Medication Select Number: 8 Total Score:: 7 Nutrition Survey Nutrition Survey Instructions Scoring Instructions Nutrition Survey Initial: Have you lost >10 lbs over the past 2 months without trying?: No Are you following a special diet at home for diabetes, low fat, or low salt?: Yes Are you interested in meeting with a dietitian for help understanding your diet?: Yes Do you eat less than 3 meals a day?: Yes Do you eat fatty meats (dewitt, sausage, ribs, etc), fried foods, desserts, large amounts of salad dressings, margarine, butter, or cheese most days?: No Do you have food allergies? [Enter types in comment field]: No Do you eat in restaurants more than 3 times a week?: No Do you season food with salt, seasoning salt, or garlic salt?: Yes Do you used canned, boxed, frozen meals, or soups, seasoning packets?: No Total Score:: 4 Exercise - Final/Discharge Physician Prescribed Exercise Modalities: Treadmill, Airdyne and NuStep Frequency: 3x/week for 12 weeks [36 sessions] Intensity: 60-80% of age predicted maximum heart rate reserve Current METSs:: 3.0 Target Heart Rate:: 94-122 Nutrition - 30-Day Assessment Weight Mgt (Other Care) Height: 5 ft 5.28 in Weight:: 190 lb BMI: 31.3 Nutrition - 60-Day Assessment Weight Mgt (Other Care) Height: 5 ft 5.28 in Weight:: 190 lb BMI: 31.3 Core - 30-Day Assessment Visit Session #:: 0 (pre-program evaluation) Core - Final Assessment Hypertension Resting Blood Pressure:: 124/78 [place] [employer] Hypertension Guidelines Core - 60-Day Assessment Hypertension Resting Blood Pressure:: 124/78 [place] [employer] Hypertension Guidelines Psychosocial - 30-Day Assess Target Goals Target Goals Referral to Behavioral Health PS - Interventions: No: Referral to Behavioral Health if PHQ-9 score >9: and No: Referral to [facility] Psychosocial - 60-Day Assess Target Goals Target Goals Referral to Behavioral Health PS - Interventions: No: Referral to Behavioral Health if PHQ-9 score >9: and No: Referral to [facility] Psychosocial - 90-Day Assess Target Goals Target Goals Referral to Behavioral Health PS - Interventions: No: Referral to Behavioral Health if PHQ-9 score >9: and No: Referral to [facility] Psychosocial - Final Assessmen Target Goals Target Goals Referral to Behavioral Health PS - Interventions: No: Referral to Behavioral Health if PHQ-9 score >9: and No: Referral to [facility] Nutrition - 90-Day Assessment Weight Mgt (Other Care) Height: 5 ft 5.28 in Weight:: 190 lb BMI: 31.3 Nutrition - Final Assessment Program Goals Patient has diagnosis of Hyperlipidemia (ICD E78)?: Yes Weight Mgt (Other Care) Height: 5 ft 5.28 in Weight:: 190 lb BMI: 31.3
--- NOTE | 2023-08-14 08:49 | PCM.CR.HP2 ---
CR - History & Physical General Arrival date:: 08/14/23 Arrival time:: 08:51 Date of Referral:: 06/26/23 Date of CR Evaluation:: 08/14/23 Referring Physician: Dr. Conrad @ [facility] Primary Diagnosis: CABG x 1, Aortic & Mitral valve replacement, LAAC (Atrial clip) History of Present Cardiac Event Onset Date Coronary Artery Bypass Graft:: Yes Vessel: 05/29/2023 Heart valve replacement or repair:: Yes (05/29/2023) Type of Symptoms:: Very tired and some shortness of breath Interventions with present event:: CABG x 1 and replaced the mitral and aortic valves Were there any complications?: Onset A-Fib and required cardio-version Medications Ambulatory Orders Medication Instructions Recorded glimepiride 2 mg tablet 1 mg PO BID DM 09/04/16 metformin 1,000 mg tablet 1,000 mg PO BIDCM DM 09/04/16 aspirin 325 mg tablet 81 mg PO DAILY HEALTH MAINTENANCE 02/11/20 losartan 50 mg-hydrochlorothiazide 1 tab PO DAILY BP 02/11/20 12.5 mg tablet levothyroxine 112 mcg tablet 112 mcg PO DAILY #30 tabs 02/12/20 levothyroxine 137 mcg tablet 137 mcg PO DAILY 10/27/22 sertraline 50 mg tablet 50 mg PO Q24H 10/27/22 warfarin 7.5 mg tablet 7.5 mg PO QMWF 10/27/22 alpha lipoic acid 100 mg capsule 100 mg PO DAILY 08/14/23 aspirin 81 mg tablet,delayed 81 mg PO DAILY 08/14/23 release (Adult Low Dose Aspirin) atenolol 50 mg tablet 50 mg PO DAILY 08/14/23 atorvastatin 40 mg tablet 40 mg PO DAILY 08/14/23 buspirone 5 mg tablet 5 mg PO TID 08/14/23 glipizide 10 mg tablet 10 mg PO BID 08/14/23 levothyroxine 150 mcg capsule 150 mcg PO DAILY 08/14/23 losartan 25 mg tablet 25 mg PO DAILY 08/14/23 metformin 500 mg tablet 500 mg PO BID 08/14/23 metoprolol succinate 50 mg 50 mg PO DAILY 08/14/23 tablet,extended release 24 hr potassium chloride 10 mEq 10 meq PO DAILY 08/14/23 capsule,extended release sertraline 50 mg tablet 50 mg PO DAILY 08/14/23 tramadol 50 mg tablet 50 mg PO Q6H 08/14/23 warfarin 5 mg tablet 5 mg PO SUTUTHSA 08/14/23 Allergies Allergies benazepril Adverse Reaction (Verified 03/31/22 10:21) cough Sleep Disorder Evaluation Hx of Sleep Apnea: No Do you snore loudly (louder than talking or can be heard through closed doors)?: Yes Do you often feel tired/ fatigued/ sleepy during daytime?: Yes Has anyone observed you stop breathing during sleep?: Yes History of Hypertension (for STOP score): Yes STOP Results: Positive has CPAP @ HS Advanced Directives Advanced Directives Power of Steward/[employer]: Yes Living Will: Yes Advance Directives Information Provided: No Advance Directives on File: No DNR Order?:: No MOLST See MOLST form: No Past Medical History Covid-19 Screening Physicial Symptoms Fever: No Unexplained muscle aches: No Current respiratory symptoms: No Upper respiratory infections symptoms: No Gastro-intestinal symptoms: No Itp-Mflf-Ghiifp symptoms: No Other Clinical Concerns Has tested positive for COVID-19 in last 30 days: No Exposure Risk Had contact w/person w/symptoms or Covid-19 (+) last 14 days: No Has High Risk Exposures ID'd by Health dept/Inf Control team: No Pertinent Comorbidities 65 years or older:: Yes Lives in Assisted Living facility:: No Has a chronic lung disease or moderate to severe asthma:: No Has a serious heart condition:: Yes Immunocompromised:: No Severely obese (Body Mass Index of 40 or higher):: No Diabetic:: Yes Has chronic kidney disease undergoing dialysis:: No Has liver disease:: No Past Medical Illness Past Medical History (Updated 08/14/23 @ 09:14 by Rex Huang CRT, [employer], BS) Anxiety F41.9 Atelectasis J98.11 DM2 (diabetes mellitus, type 2) E11.9 Hypothyroidism E03.9 Hypovolemia E86.1 Mitral valve stenosis and aortic valve stenosis I08.0 Paroxysmal atrial fibrillation I48.0 Presence of left atrial appendage closure device Z95.818 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 Thrombocytopenia D69.6 Past Surgical History Past Surgical History (Updated 08/14/23 @ 09:14 by Rex Huang CRT, [employer], BS) H/O aortic valve replacement Z95.2 H/O mitral valve replacement Z95.2 History of coronary artery bypass graft x 1 Z95.1 Social History Smoking History Smoking Status: Never smoker Alcohol Use Alcohol Usage: No (not regular use, may have a glass of wine 1 or twice a year) Substance Abuse Hx Substance Use: No Occupation Occupation (List type of work in comments):: Retired Hobbies, Recreation, Social Activities Hobbies: Sewing (crafts, painting), Reading and Other (pentecostal group activities, and grandchildren activities.) Recreational Activities: I am able to engage in all my recreational activities Social Environment Status Marital Status: Current Living Arrangements Living Environment:: Alone Children How many children do you have?: 2 Do any of your children live nearby?: Yes Safety Do you feel safe in your surroundings?: Yes Assistance Do you need any assistance at home?: no Review of Systems Review of Systems Hints Review of Present Symptoms: Reports Dizziness/Lightheadedness (if get up to quickly in the morning. Sitting on the side of the bed now for a few minutes before getting up), Heart Arrhythmia/Irregularities (Paroxysmal atrial fibrillation require cardioversion), Appetite - Normal, Appetite - Special Diet (low sugar , low sodium diet) and Sleep - Normal; Denies Shortness of Breath at Rest, Shortness of Breath with Exertion, Operative Discomfort, Angina, Wound Healing, Fatigue or Sexual Changes Pain Is Patient Pain Free?: Yes Pain Location: none Risk Factor Assessment Vital Signs Respiratory Rate: 14 Pulse Ox: 96 Blood Pressure: 124/78 Pulse Pulse Rate: 114 Pulse Rhythm: Regular Hypertension How long have you been treated?: A Long time Blood Pressure Sitting - Left Arm: 124/78 Diabetes Diabetic History: Type II, Medication Dependent and Insulin Dependent (Insulin PEn and on a sliding scale) Nutrition Referral for Diabetes: Yes Obesity Height: 5 ft 6.14 in Weight:: 190 lb Weight in Pounds: 190.0 lbs Weight Source: [facility] ([facility] Body Mass Index (BMI): 30.5 Physical Inactivity Physical Inactivity: None Risk Stratification Risk Guidelines: Lowest Risk: Risk Factor for Smoking, Risk Factor for Dyslipidemia, Risk Factor for Diabetes, Risk Factor for Hypertension, Risk Factor for Sedentary Lifestyle and Risk Factor for Depression and Highest Risk: Risk Factor for Obesity (>30) For Smoking Smoking Risk Guidelines For Dyslipidemia Dyslipidemia Risk Guidelines For Diabetes Mellitus Diabetes Risk Guidelines For Obesity/Overweight Obesity/Overweight Risk Guidelines For Hypertension Hypertension Risk Guidelines For Sedentary Lifestyle Sedentary Lifestyle Risk Guidelines For Depression Depression Risk Guidelines Motivation Motivation to Participate On a scale of 1 to 10, how prepared are you to commit to attending program?: 6 What do you see as barriers to successfully being able to complete the program?: don't see anything that would prevent participating What do you see as the benefits of succesfully completing the program? In other words, what do you hope to get out of participating in the program?: Getting my strength back, overall health feeling better Are there issues you are dealing with that will interfere with completing the program?: No Do you have a spouse or signficant other, family or friends who will help support you to complete the program?: Jazmine
[2023-08-14 09:21] VITALS: BP 124/78; BMI 31.3
[2023-08-14 09:29] VITALS: BP 124/78; PULSE 114; RESP 14; O2SAT 96; BMI 30.5
== END | disposition home or self-care (01) ==
PROVIDERS: PCP Internal Medicine
DX: Z95.1 Presence of aortocoronary bypass graft (principal); Z95.2 Presence of prosthetic heart valve

== ENCOUNTER 2023-08-18 15:04 | Outpatient (RCR) | payer MEDICARE, SELFPAY ==
[2023-08-14 09:21] VITALS: BMI 31.3
== END 2023-08-19 23:59 ==
LOC: CR 15:04
PROVIDERS: PCP Internal Medicine
DX: Z95.1 Presence of aortocoronary bypass graft (principal); Z95.2 Presence of prosthetic heart valve
CPT/HCPCS: 93798

== ENCOUNTER 2023-08-28 18:51 | Emergency (ER) | payer MEDICARE, SELFPAY ==
[2023-08-14 09:21] VITALS: BMI 31.3
[2023-08-28 18:53] VITALS: BP 178/78; PULSE 83; RESP 18; TEMP 36.9; O2SAT 98
--- NOTE | 2023-08-28 19:12 | CT_ITS ---
EXAM: CT MAXILLOFACIAL WITHOUT INTRAVENOUS CONTRAST CLINICAL INDICATION: facial trauma TECHNIQUE: Helically acquired images were obtained of the face without intravenous contrast. This CT exam was performed using one or more of the following dose reduction techniques: automated exposure control, adjustment of the mA and/or kV according to patient size, and/or use of iterative reconstruction technique. COMPARISON: No relevant prior studies available. FINDINGS: BONES/JOINTS: There is a fracture of the medial and inferior wall of the right orbit. No discrete lytic or blastic abnormalities. SOFT TISSUES: See below. ORBITS: See below. SINUSES: There is an air-fluid level in right maxillary sinus compatible hemorrhage. There is extension of fat into the right maxillary sinus. There also appears to be entrapment of the right inferior rectus muscle. MASTOID AIR CELLS: Unremarkable as visualized. Clear. DENTAL: No acute findings. No periodontal osseous erosion. CT/Sinus/Facial Bone IMPRESSION: Fractures of the inferior and medial nava of the right orbit. There is entrapment of the right inferior rectus muscle. There is also herniation of fat into the right maxillary sinus. Electronically Signed: George Gleason MD at 20:08 EDT ,
--- NOTE | 2023-08-28 19:12 | CT_ITS ---
EXAM: CT CERVICAL SPINE WITHOUT INTRAVENOUS CONTRAST CLINICAL INDICATION: trauma TECHNIQUE: Helically acquired images were obtained of the cervical spine without intravenous contrast. 2D reformatted images were reviewed. This CT exam was performed using one or more of the following dose reduction techniques: automated exposure control, adjustment of the mA and/or kV according to patient size, and/or use of iterative reconstruction technique. COMPARISON: No relevant prior studies available. FINDINGS: VERTEBRAE: There are large anterior osteophytes from C4 through C6. No fracture. No traumatic subluxation. No discrete lytic or blastic abnormality. Normal alignment. Normal craniocervical junction and cervicothoracic junction. DISCS/SPINAL CANAL/NEURAL FORAMINA: There is disc space narrowing at C4-5, C5-6 and C6-7. SOFT TISSUES: Unremarkable. No prevertebral soft tissue swelling. LYMPH NODES: Unremarkable. No cervical adenopathy. LUNG APICES: Unremarkable as visualized. Clear. CT/Spine Cervical without Contras IMPRESSION: 1. No acute osseous abnormalities of the cervical spine. 2. Multilevel degenerative change with disc space narrowing. Electronically Signed: George Gleason MD at 20:09 EDT ,
--- NOTE | 2023-08-28 19:12 | CT_ITS ---
We are attempting to reach an attending provider to discuss findings. An addendum with communication details will be sent when the communication is complete. EXAM: CT HEAD WITHOUT INTRAVENOUS CONTRAST CLINICAL INDICATION: head trauma TECHNIQUE: Multiple axial images were obtained of the head without intravenous contrast. This CT exam was performed using one or more of the following dose reduction techniques: automated exposure control, adjustment of the mA and/or kV according to patient size, and/or use of iterative reconstruction technique. COMPARISON: No relevant prior studies available. FINDINGS: BRAIN AND EXTRA-AXIAL SPACES: There is a small amount of increased density in the subarachnoid space in the high left frontal lobe near the vertex which may represent a subarachnoid hemorrhage. No evidence of acute infarct. No intracranial mass or mass effect. There is preservation of the lorenzo/white matter interface. Posterior fossa structures are unremarkable. Ventricles are appropriate for age. No hydrocephalus. Basal cisterns are patent. BONES/JOINTS: There is a fracture of the medial wall of the right orbit. There is soft tissue swelling over the right orbit. There is also a fracture of the inferior wall right orbit with a small amount of fat herniated the maxillary sinus. There is questionable entrapment of the right inferior rectus muscle. No discrete lytic or blastic abnormalities. SINUSES: There is an air-fluid level in right maxillary sinus which may be due to hemorrhage. MASTOID AIR CELLS: Unremarkable. Clear. ORBITS: Visualized globes, extraocular muscles, optic nerves and retrobulbar fat appear unremarkable. CT/Brain/Head without Contrast IMPRESSION: 1. Minimal hyperdensity in the in the high left frontal lobe which may represent a small subarachnoid hemorrhage. There is no mass effect or shift. 2. Fractures of the medial and inferior nava of the right orbit. There is herniation of fat into the right maxillary sinus with questionable entrapment of the right rectus muscle. There is an air-fluid level right maxillary sinus. Electronically Signed: George Gleason MD at 19:57 EDT ,
--- NOTE | 2023-08-28 19:14 | EDS_ITS ---
HPI History of Present Illness Chief Complaint: Fall Narrative Narrative: 77-year-old female presenting with facial injury. She was walking outside talking on the phone and fell hitting her head. No LOC. No dizziness or lightheadedness. No nausea. She does have a headache. She has a superficial laceration to the lateral right eyebrow. Bleeding is well-controlled. No visual complaints. Denies neck pain. No injury to her arms or legs. No chest pain or abdominal pain. 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 Thrombocytopenia Home Medications glimepiride 2 mg tablet 1 mg PO BID DM 09/04/16 [History Last Taken 02/11/20] metformin 1,000 mg tablet 1,000 mg PO BIDCM DM 09/04/16 [History Last Taken 02/11/20] aspirin 325 mg tablet 81 mg PO DAILY HEALTH MAINTENANCE 02/11/20 [History Last Taken 02/11/20] losartan 50 mg-hydrochlorothiazide 12.5 mg tablet 1 tab PO DAILY BP 02/11/20 [History Last Taken 02/11/20] levothyroxine 112 mcg tablet 112 mcg PO DAILY #30 tabs 02/12/20 [Rx Last Taken Unknown] levothyroxine 137 mcg tablet 137 mcg PO DAILY 10/27/22 [History Last Taken Unknown] sertraline 50 mg tablet 50 mg PO Q24H 10/27/22 [History Last Taken Unknown] warfarin 7.5 mg tablet 7.5 mg PO QMWF 10/27/22 [History Last Taken Unknown] alpha lipoic acid 100 mg capsule 100 mg PO DAILY 08/14/23 [History Last Taken Unknown] aspirin 81 mg tablet,delayed release (Adult Low Dose Aspirin) 81 mg PO DAILY 08/14/23 [History Last Taken Unknown] atenolol 50 mg tablet 50 mg PO DAILY 08/14/23 [History Last Taken Unknown] atorvastatin 40 mg tablet 40 mg PO DAILY 08/14/23 [History Last Taken Unknown] buspirone 5 mg tablet 5 mg PO TID 08/14/23 [History Last Taken Unknown] glipizide 10 mg tablet 10 mg PO BID 08/14/23 [History Last Taken Unknown] levothyroxine 150 mcg capsule 150 mcg PO DAILY 08/14/23 [History Last Taken Unknown] losartan 25 mg tablet 25 mg PO DAILY 08/14/23 [History Last Taken Unknown] metformin 500 mg tablet 500 mg PO BID 08/14/23 [History Last Taken Unknown] metoprolol succinate 50 mg tablet,extended release 24 hr 50 mg PO DAILY 08/14/23 [History Last Taken Unknown] potassium chloride 10 mEq capsule,extended release 10 meq PO DAILY 08/14/23 [History Last Taken Unknown] sertraline 50 mg tablet 50 mg PO DAILY 08/14/23 [History Last Taken Unknown] tramadol 50 mg tablet 50 mg PO Q6H 08/14/23 [History Last Taken Unknown] warfarin 5 mg tablet 5 mg PO SUTUTHSA 08/14/23 [History Last Taken Unknown] Allergy/AdvReac Type Severity Reaction Status Date / Time benazepril AdvReac cough Verified 08/28/23 18:53 Surgical History H/O aortic valve replacement H/O mitral valve replacement History of coronary artery bypass graft x 1 Social History Smoking Status: Never smoker ROS ROS ED Constitutional Constitutional ED: Denies chills, fever(s) or sweats Eyes Eyes: Denies blurry vision or change in vision ENT ENT ED: Denies ear pain or sore throat Cardiovascular Cardiovascular: Denies chest pain, palpitations or racing heartbeat Respiratory/Chest Respiratory/Chest: Denies cough, dyspnea or sputum Gastrointestinal Gastrointestinal: Denies abdominal pain, constipation, diarrhea, nausea or vomiting Genitourinary Genitourinary ED: Denies dysuria, hematuria or urinary frequency Musculoskeletal Musculoskeletal: Denies arthralgias, myalgias or neck pain Integumentary Reports Abrasions and other Details: Superficial laceration right eyebrow ; Denies abscess or rash Neurologic Neurologic: Reports headache(s); Denies paresthesias or weakness Psychiatric Psychiatric: Denies anxiety, depression, suicidal ideation or suicidal thoughts Endocrine Endocrinology: Denies polydipsia or polyuria EXAM Physical Exam Const Vital Signs: 08/28/23 18:53 08/28/23 18:56 Temperature 98.4 F Temperature Source Oral Pulse Rate 83 Respiratory Rate 18 Respiratory Effort Normal Respiratory Depth Normal Respiratory Pattern Normal Blood Pressure 178/78 H Blood Pressure Mean 111 Pulse Ox 98 Oxygen Delivery Method Room Air Room Air Positive well nourished General Appearance ED: NAD HESONALI HESONALI Narrative: Bruising/swelling to the right supraorbital ridge laterally. Extraocular motion intact without any evidence of entrapment. Nasal bone midline without any epistaxis or nasal septal hematoma. Facial bones are nontender. No jaw malocclusion. Dentition intact. Resp normal respiratory effort and clear to auscultation bilaterally Auscultation: Negative for rales, rhonchi or wheezes Cardio regular rhythm Back/Spine Back/Spine Narrative: No midline cervical spinal tenderness, deformity, step-off. Neuro oriented x3, CN's II-XII intact bilaterally, moves all extremities, no focal motor deficits and no sensory deficits noted Sensorium / Orientation: alert Motor Exam: strength 5/5 throughout Psych mental status grossly normal Skin Skin Narrative: As described above MDM MDM MDM Narrative Medical decision making narrative: Patient presenting after fall and facial injury. She is on Coumadin. This is for A-fib. She really complains of mild headache. No focal deficits on examination. Differential includes facial laceration, facial contusion, subdural hematoma, epidural hematoma, skull fracture, C-spine fracture, facial bone fracture. CT brain and cervical spine will be obtained as well as CT facial bones. CT brain interpreted as left high frontal subarachnoid hemorrhage. There is also fractures of the medial and inferior nava of the orbit with rectus muscle entrapment. Treatment there is herniation of fat in the right maxillary sinus. CT of the cervical spine was negative. Chest x-ray was ordered because the patient is having rib pain but on my interpretation there is no acute fracture, pneumothorax or other acute pathology. Given these findings CBC, BMP, INR were obtained. Patient declined analgesia at this time. Discussed with Dr. Henriquez at [facility]. He did accept the patient. We are working on transport. INR came back at 1.7 discussed with the pharmacy and the recommendation is to treat it like it is 2.0 and this dose was ordered of human PCC and vitamin K based on 2.0 INR. Patient awaiting transport at this time. Impression 1. Mechanical fall 2. Traumatic subarachnoid hemorrhage 3. Orbital fracture 4. Rectus muscle entrapment right eye Lab Data Attestation: I reviewed the patient's lab results. Labs: Laboratory Results - last 24 hr 08/28/23 20:11 WBC 11.1 H RBC 5.46 H Hgb 12.2 Hct 41.3 MCV 75.6 L MCH 22.3 L MCHC 29.5 L RDW Std Deviation 49.0 H RDW Coeff of Marcie 18.6 H Plt Count 318 MPV 10.5 Immature Gran % (Auto) 0.600 Neut % (Auto) 77.2 H Lymph % (Auto) 12.4 L [place] % (Auto) 8.2 Eos % (Auto) 0.9 Baso % (Auto) 0.7 Absolute Neuts (auto) 8.6 H Absolute Lymphs (auto) 1.37 Nucleated RBC % 0 PT 20.1 H INR 1.7 Sodium 137 Potassium 3.6 Chloride 103 Carbon Dioxide 29.0 Anion Gap 5 BUN 26 H Creatinine 1.10 H Estim Creat Clear Calc 46.02 Est GFR (MDRD) Af Amer 62 Est GFR (MDRD) Non-Af 51 L BUN/Creatinine Ratio 23.6 H Glucose 215 H Calcium 8.9 Radiography Diagnostic Testing: Clinical Impression(s) from Imaging Studies Brain CT 08/28/23 19:12 IMPRESSION: 1. Minimal hyperdensity in the in the high left frontal lobe which may represent a small subarachnoid hemorrhage. There is no mass effect or shift. 2. Fractures of the medial and inferior nava of the right orbit. There is herniation of fat into the right maxillary sinus with questionable entrapment of the right rectus muscle. There is an air-fluid level right maxillary sinus. Electronically Signed: George Gleason MD at 19:57 EDT , ADDENDUM: 08/28/232024 IMPRESSION: undefined ADDENDUM: 08/28/232032 IMPRESSION: undefined Cervical Spine CT 08/28/23 19:12 IMPRESSION: 1. No acute osseous abnormalities of the cervical spine. 2. Multilevel degenerative change with disc space narrowing. Electronically Signed: George Gleason MD at 20:09 EDT , Facial/Sinus 08/28/23 19:12 IMPRESSION: Fractures of the inferior and medial nava of the right orbit. There is entrapment of the right inferior rectus muscle. There is also herniation of fat into the right maxillary sinus. Electronically Signed: George Gleason MD at 20:08 EDT , Ribs w/Chest X-Ray 08/28/23 19:40 IMPRESSION: No acute findings in the chest or right ribs. Electronically Signed: George Gleason MD at 20:19 EDT , Discharge Plan Triage Chief Complaint: Fall ED Provider: Estevan Choe Dx/Rx/DC Orders Clinical Impression: Traumatic subarachnoid hemorrhage, Entrapment of inferior rectus muscle of right eye, Orbital fracture Prescriptions: No Action glimepiride 2 MG tablet 1 mg PO BID metformin 1,000 MG tablet 1,000 mg PO BIDCM losartan-hydrochlorothiazide 1 EACH tablet 1 tab PO DAILY Hold Instructions: Pt has been DC'd aspirin 325 MG tablet 81 mg PO DAILY Hold Instructions: Pt has been DC'd levothyroxine 112 MCG tablet 112 mcg PO DAILY Qty: 30 0RF Hold Instructions: Pt has been DC'd warfarin 7.5 mg tablet 7.5 mg PO QMWF Hold Instructions: Pt has been DC'd levothyroxine 137 mcg tablet 137 mcg PO DAILY Hold Instructions: Pt has been DC'd sertraline 50 mg tablet 50 mg PO Q24H Hold Instructions: Pt has been DC'd glipizide 10 mg tablet 10 mg PO BID metoprolol succinate 50 mg tablet extended release 24 hr 50 mg PO DAILY potassium chloride 10 mEq capsule, extended release 10 meq PO DAILY metformin 500 mg tablet 500 mg PO BID tramadol 50 mg tablet 50 mg PO Q6H atorvastatin 40 mg tablet 40 mg PO DAILY aspirin [Adult Low Dose Aspirin] 81 mg tablet,delayed release (DR/EC) 81 mg PO DAILY alpha lipoic acid 100 mg capsule 100 mg PO DAILY buspirone 5 mg tablet 5 mg PO TID levothyroxine 150 mcg capsule 150 mcg PO DAILY sertraline 50 mg tablet 50 mg PO DAILY warfarin 5 mg tablet 5 mg PO SUTUTHSA atenolol 50 mg tablet 50 mg PO DAILY losartan 25 mg tablet 25 mg PO DAILY Primary Care Provider: Louise Barahona Referrals: Louise Barahona MD [Primary Care Provider] - Disposition Disposition: Home, Self Care
--- NOTE | 2023-08-28 19:40 | RAD_ITS ---
EXAM: XR RIGHT RIBS AND AP CHEST, 3 OR MORE VIEWS CLINICAL INDICATION: right rib pain TECHNIQUE: Frontal and oblique views of the right ribs and frontal view of the chest. COMPARISON: No relevant prior studies available. FINDINGS: LUNGS AND PLEURAL SPACES: Unremarkable. No consolidation or edema. No pneumothorax. No effusion. HEART: There is an atrial appendage clip. There is a prosthetic valve present. MEDIASTINUM: Central airways and mediastinal contour are unremarkable. BONES/JOINTS: Unremarkable. No evidence of displaced rib fractures. RAD/Ribs Uni Min 3V w/PA Chest IMPRESSION: No acute findings in the chest or right ribs. Electronically Signed: George Gleason MD at 20:19 EDT ,
--- NOTE | 2023-08-28 20:08 | ED.RN ---
Initiated trauma transfer with [facility] Transfer line.
--- NOTE | 2023-08-28 20:17 | ED.RN ---
Pt accepted by dr Henriquez in [facility] ER. [facility] notified and we were given a 2 hour ETA for them. Asked to outsource and they will call back.
[2023-08-28 20:33] LABS: Absolute Lymphocyte Count 1.37 X10^3/uL (0.83-4.51); Absolute Neutrophil Count 8.6 X10^3/uL (2.0-7.7); Basophil# 0.08 X10^3/uL; Basophil% 0.7 % (0-1); Eosinophils% 0.9 % (0-5); Hematocrit 41.3 % (37-47); Hemoglobin 12.2 g/dL (12.0-15.0); International Normalized Ratio 1.7; Lymphocyte # 1.37 X10^3/ul (0.83-4.51); Lymphocyte % 12.4 % (19-41); Mean Corp Hgb Conc 29.5 g/dL (32-36); Mean Corpuscular Hgb 22.3 pg (27.0-32.0); Mean Corpuscular Volume 75.6 fL (81-99); Mean Platelet Vol. 10.5 fl (6.2-12.0); Monocyte# 0.91 X10^3/uL; Monocyte% 8.2 % (0-10); NRBC Flagged by Analyzer 0 % (0-5); Neutrophil # 8.56 X10^3/uL (2.7-7.7); Neutrophil % 77.2 % (47-70); Platelet Count 318 K/mm3 (150-450); Prothrombin Time (Protime)PT. 20.1 SECONDS (11.7-14.9); RBC Distribution Width CV 18.6 % (11.6-14.6); Red Blood Count 5.46 M/mm3 (4.2-5.4); White Blood Count 11.1 K/mm3 (4.4-11.0)
[2023-08-28 20:47] LABS: Anion Gap 5 (5-15); BUN 26 mg/dL (7-18); BUN/Creat Ratio 23.6 RATIO (10-20); Calcium,Total 8.9 mg/dL (8.5-10.1); Chloride 103 mmol/L (98-107); EST Glomerular Filtration Rate 51 mL/min (>60); Est Glom Filt Rate - Afr Amer 62 mL/min (>60); Estimated Creatinine Clearance 46.02 ml/min; Glucose 215 mg/dL (74-106); Potassium 3.6 mmol/L (3.5-5.1); Sodium Level 137 mmol/L (136-145)
[2023-08-28 21:15] VITALS: BP 133/87; PULSE 77; RESP 18; O2SAT 95
[2023-08-28] MEDS: HUM PROTHROMBIN CPLX(PCC)-LANS 2,160 UNIT in Viaflex Bag 1 BAG 500 UNIT IV (21:34)
[2023-08-28 21:35] VITALS: BP 133/83; PULSE 75; RESP 18; TEMP 36.8; O2SAT 99
[2023-08-28 21:45] VITALS: BP 136/79; PULSE 75; RESP 17; O2SAT 98
[2023-08-28] MEDS: Phytonadione (Vit K) 10 MG in 0.9% Normal Saline (50mL Bag) 50 ML 153 MG IV (21:55)
== END 2023-08-28 22:00 | disposition home or self-care (01) ==
PROVIDERS: Emergency Provider Student in an Organized Health Care Education/Training Program; PCP Internal Medicine; Visit Provider Student in an Organized Health Care Education/Training Program
DX: S06.6X0A Traumatic subarachnoid hemorrhage without loss of consciousness, initial encounter (principal); I48.91 Unspecified atrial fibrillation; S02.31XA Fracture of orbital floor, right side, initial encounter for closed fracture; S02.831A Fracture of medial orbital wall, right side, initial encounter for closed fracture; E11.22 Type 2 diabetes mellitus with diabetic chronic kidney disease; W19.XXXA Unspecified fall, initial encounter; S01.111A Laceration without foreign body of right eyelid and periocular area, initial encounter; E03.9 Hypothyroidism, unspecified; Z79.01 Long term (current) use of anticoagulants; H50.631 Inferior rectus muscle entrapment, right eye
CPT/HCPCS: 70450; 70486; 71101; 72125; 80048; 85025; 85610; 96365; 96375; 99284; A4216; C9159; J3490

== ENCOUNTER 2023-09-19 11:30 | Outpatient (RCR) | payer MEDICARE, SELFPAY ==
[2023-08-14 09:21] VITALS: BMI 31.3
--- NOTE | 2023-09-12 08:33 | PCM.CR.ITP ---
Exercise - Initial Assessment Visit Session #:: 9 Comments:: Patient has missed 2 sessions the first 30-days Physician Prescribed Exercise Modalities: Treadmill, Schwinn Airdyne AD-7 and SciFit Stepper Nutrition - Initial Assessment Weight Mgt (Other Care) Height: 5 ft 6 in Weight:: 174 lb 8 oz BMI: 28.1 Psychosocial - Initial Assess Target Goals Target Goals Referral to Behavioral Health PS - Interventions: Yes: Attend Stress Management Classes and No: Referral to Behavioral Health if PHQ-9 score >9:, No: Referral to [facility] and No: Referral to Physician if PHQ-9 if score is 5-9: Patient Health Questionnaire PHQ-9 Screening 30-Day Re-eval Assessment: 1. Little interest or pleasure in doing things: Not at all 2. Feeling down, depressed, or hopeless: Not at all 3. Trouble falling or staying asleep, or sleeping too much: More than half the days 4. Feeling tired or having little energy: More than half the days 5. Poor appetite or overeating: Not at all 6. Feeling bad about yourself -- or that you are a failure or have let yourself or your family down: Not at all 7. Trouble concentrating on things, such as reading the newspaper or watching television: Not at all 8. Moving or speaking so slowly that other people could have noticed. Or the opposite - being so fidgety or restless that you have been moving around a lot more than usual: Not at all 9. Thoughts that you would be better off , or of hurting yourself in some way: Not at all How difficult have these problems made it for you to do your work, take care of things at home, or get along with other people?: Not difficult at all Total Score: 4 Self-Efficacy 6-Item Scale 30-Day Re-eval Assessment: We would like to know how confident you are in doing certain activities. Please select your confidence level for: Fatigue Select Number: 6 Physical Discomfort or Pain Select Number: 9 Emotional Distress Select Number: 9 Other Symptoms or Health Problems Select Number: 6 Different Tasks and Activities Select Number: 8 Medication Select Number: 8 Total Score:: 7 Nutrition Survey Nutrition Survey Instructions Scoring Instructions Exercise - 30-day Assessment Visit Date of Eval: 09/12/23 Session #:: 9 Comments:: Patient has missed 2 sessions the first 30-days Physician Prescribed Exercise Modalities: Treadmill, Schwinn Airdyne AD-7 and SciFit Stepper Frequency: 3x/week for 12 weeks [36 sessions] Intensity: 60-80% of age predicted maximum heart rate reserve Duration: 30 - 45 minutes Current METSs:: 3.5 Target Heart Rate:: 86-101 Current RPE:: 12-13 Maximum Excercise HR:: 95 Resting Blood Pressure: 130/78 Maximum Exercise Blood Pressure: 152/70 Outcomes & Goals Goals:: Verbalizes understanding of THR, RPE & goal METS by session 6, Documents in home exercise log/reports 30 min aerobic 5 day/wk by DC and Demonstrates accurate pulse taking by DC Intervention & Plan Exercise Program Goals: Instruct on personal THR & RPE, Instruct on MET level & personal MET goal, Show patient to take own pulse /validate performance until accurate and Instruct on home exercise 30-day Reassessments 30 day Reassessments:: Met Physical Activity Home Exercise Physical Activity - Home Exercise: Safe Exercise, Warm-up, Self-monitoring, Cool-Down, Home Exercise > 30 min Daily and Sitting Time <3 hours/daily Outcomes & Goals Outcomes/Goals: Demonstrates correct Warm-up/exercise Cool-Down (S3) if = 2.5 METs, Verbalizes symptoms of exercise intolerance by Session 3 (S3) and Demonstrate safe equipment use (S3) & follows exercise prescrition (6) Intervention & Plan Plan/Intervention: Instruct warm-up & cool-down if exercising at > 2 METs, Instruct on symptoms of exercise intolerance & actions to take, Instruct & monitor on saf and Assess intial functional capacity & safety risk 30-day Reassessments 30 day Reassessments:: Met Exercise - 60-day Assessment Physician Prescribed Exercise Modalities: Treadmill, Schwinn Airdyne AD-7 and SciFit Stepper Exercise - 90-day Assessment Physician Prescribed Exercise Modalities: Treadmill, Schwinn Airdyne AD-7 and SciFit Stepper Exercise - Final/Discharge Physician Prescribed Exercise Modalities: Treadmill, Schwinn Airdyne AD-7 and SciFit Stepper Nutrition - 30-Day Assessment Program Goals Nutrition Program Goals Patient has diagnosis of Hyperlipidemia (ICD E78)?: Yes Visit Date of Eval: 09/12/23 Session #:: 9 Cholesterol/Lipids (Other Core Measures) Triglycerides (mg/dL): 241 Total Cholesterol (mg/dL): 146 LDL Cholesterol (mg/dL): 65 HDL Cholesterol (mg/dL): 33 Determine presence & major risk factors that modify LDL goal: Hypertension or hypertensive medication, Low HDL cholesterol <40 mg/dL* and Age men > 45 years; women >/= 55 years Outcomes/Goals: Pt IDs own risk factors & lifestyle modifications by Session 10 and Verbalizes symptoms of angina & response by session 3. Intervention/Plan: Instruct on personal lipid levels & lipid goals/NCEP guidelines and Instruct on cholesterol Referral to dietitian:: Yes (08/14/2023 after speaking w/patient she was not interested, try again please) 30-day Reassessments:: Not Met Diabetes (Other Core Measures) Diabetes Type: Diagnosis Type II ICD-10 E11 Fasting blood glucose:: 200 Hgb A1C (4.2 -6.3): 8.6 Insulin dependent injection/pump?: Yes (Insulin Lispro) Non-Insulin Dependent?: Yes (Metformin 500mg) Do you monitor your blood sugar at home?: Yes Referral to Diabetic Clinic:: Yes Outcomes/Goals:: Able to state symptoms of, Able to state and Able to state Intervention/Plan:: Instruct on, Refer to and Instruct on 30-day Reassessments:: Not Met Weight Mgt (Other Care) Not Applicable: Yes Height: 5 ft 6 in Weight:: 174 lb 8 oz BMI: 28.1 Diagnosis Overweight/Obesity BMI> 30% ICD-10 E66: No Diagnosis High BMI/Morbid Obesity BMI> 35% ICD-10 Z68: No Outcomes/Goals: Pt sets, maintains & shows weight loss goal & trend during rehab Intervention/Plan: Instruct on ideal BMI & set weight loss goal w/patient 30 day Reassessments:: Met Healthy Eating Habits Will attend diet classes:: Yes Outcomes/Goals:: Consume diet rich in vegs,fruits,whole grain/high fiber,fish,lean meat and Limit sat/trans fats,cholesterol & added salts & sugars Intervention/Plan:: Assess current eating habits 30-day Reassessments:: Progressing Education Gave educational materials for:: Signs & symptoms of hypoglycemia, Signs & symptoms of hyperglycemia, Relate diabetes to coronary artery disease and Healthy eating Nutrition - 60-Day Assessment Weight Mgt (Other Care) Height: 5 ft 6 in Weight:: 174 lb 8 oz BMI: 28.1 Core - 30-Day Assessment Visit Date of Eval: 09/12/23 Session #:: 9 Medication Compliance Preventative Medication(s):: Aspirin, ALBERTINA inhibitor, Statin/lipid, Beta glendy and Warfarin/Coumadin H/O mental health issues: depression, anxiety, or addiction?: No Doesn?t believe in the benefits of treatment?: No Believes medications are unnecessary or harmful?: No Has a concern about medication side effects?: No Expresses concern over the cost of medications?: No Outcomes/Goals: Verbalizes medications,desired effect & common side effects @ DC, Pt self-reports following medication regimen and Keeps card in wallet w/medications listed by DC Interventions/plans: Instruct on medication effects & side effects and Instruct importance of taking meds as ordered & assist problem solving 30-day Reassessments:: Met Tobacco Use Tobacco Use: Non-smoker Hypertension Hypertension Diagnosis:: Hypertension ICD-10 I10 Resting Blood Pressure:: 126/58 [place] [employer] Hypertension Guidelines Peak Exercise Blood Pressure:: 152/70 Outcomes/Goals: Able to verbalize/achieve optimal blood pressure <130/80 and Incorporates diet changes & exercise for blood pressure control by DC Interventions/plan: Instruct on optimal blood pressure, hypertension & medications and Instruct on effects of sodium, alcohol, stress, exercise &hypertension 30 day Reassessments:: Met Tobacco Cessation Referral Smoking Cessation Referral:: No Individual Education/Counseling:: No Education Schedule Given:: Yes Psychosocial - 30-Day Assess VIsit Date of Eval: 09/12/23 Session #:: 9 Not Applicable: Yes History of previous Mental disease:: No Target Goals Target Goals Psychosocial Test Tool Used:: PHQ-9 Questionnaire phq-9 Severity Referral to Behavioral Health PS - Interventions: Yes: Attend Stress Management Classes and No: Referral to Behavioral Health if PHQ-9 score >9:, No: Referral to [facility] and No: Referral to Physician if PHQ-9 if score is 5-9: Outcomes/Goals: See list Psychosocial Outcomes/Goals:: ID's personal stressors & 2 strategies to manage stress by discharge Intervention/Plan: See List Interventions/Plan:: Assess stressors,coping strategies & signs of derpression on admission, Instruct/assist pt to develop coping & personal stress Mgt strategies, Instruct patient to recognize signs & symptoms of depression and Instruct patient to recog 30-day Reassessments: 30 day Reassessments:: Met Psychosocial - 60-Day Assess Target Goals Target Goals Referral to Behavioral Health PS - Interventions: Yes: Attend Stress Management Classes and No: Referral to Behavioral Health if PHQ-9 score >9:, No: Referral to [facility] and No: Referral to Physician if PHQ-9 if score is 5-9: Outcomes/Goals: See list Psychosocial Outcomes/Goals:: ID's personal stressors & 2 strategies to manage stress by discharge Psychosocial - 90-Day Assess Target Goals Target Goals Referral to Behavioral Health PS - Interventions: Yes: Attend Stress Management Classes and No: Referral to Behavioral Health if PHQ-9 score >9:, No: Referral to [facility] and No: Referral to Physician if PHQ-9 if score is 5-9: Psychosocial - Final Assessmen Target Goals Target Goals Referral to Behavioral Health PS - Interventions: Yes: Attend Stress Management Classes and No: Referral to Behavioral Health if PHQ-9 score >9:, No: Referral to [facility] and No: Referral to Physician if PHQ-9 if score is 5-9: Nutrition - 90-Day Assessment Weight Mgt (Other Care) Height: 5 ft 6 in Weight:: 174 lb 8 oz BMI: 28.1 Nutrition - Final Assessment Weight Mgt (Other Care) Height: 5 ft 6 in Weight:: 174 lb 8 oz BMI: 28.1
[2023-09-12 08:37] VITALS: BP 130/78
[2023-09-12 08:48] VITALS: BP 126/58; BMI 28.1
== END 2023-09-19 23:59 ==
LOC: CR 11:30
PROVIDERS: PCP Internal Medicine
DX: Z95.1 Presence of aortocoronary bypass graft (principal); Z95.2 Presence of prosthetic heart valve
CPT/HCPCS: 93798

== ENCOUNTER 2023-10-17 11:30 | Outpatient (RCR) | payer MEDICARE, SELFPAY ==
[2023-09-12 08:48] VITALS: BMI 28.1
[2023-09-20 02:31] VITALS: BP 126/58; BP 130/78
--- NOTE | 2023-10-13 08:06 | PCM.CR.ITP ---
Exercise - Initial Assessment Physician Prescribed Exercise Modalities: Treadmill, Schwinn Airdyne AD-7 and SciFit Stepper Nutrition - Initial Assessment Weight Mgt (Other Care) Height: 5 ft 6 in Weight:: 175 lb BMI: 28.2 Psychosocial - Initial Assess Target Goals Target Goals Referral to Behavioral Health PS - Interventions: Yes: Attend Stress Management Classes and No: Referral to Behavioral Health if PHQ-9 score >9:, No: Referral to [facility] and No: Referral to Physician if PHQ-9 if score is 5-9: Patient Health Questionnaire PHQ-9 Screening 60-Day Re-eval Assessment: 1. Little interest or pleasure in doing things: Not at all 2. Feeling down, depressed, or hopeless: Not at all 3. Trouble falling or staying asleep, or sleeping too much: Several days 4. Feeling tired or having little energy: Several days 5. Poor appetite or overeating: Not at all 6. Feeling bad about yourself -- or that you are a failure or have let yourself or your family down: Not at all 7. Trouble concentrating on things, such as reading the newspaper or watching television: Not at all 8. Moving or speaking so slowly that other people could have noticed. Or the opposite - being so fidgety or restless that you have been moving around a lot more than usual: Not at all 9. Thoughts that you would be better off , or of hurting yourself in some way: Not at all How difficult have these problems made it for you to do your work, take care of things at home, or get along with other people?: Not difficult at all Total Score: 2 Self-Efficacy 6-Item Scale 60-Day Re-eval Assessment: We would like to know how confident you are in doing certain activities. Please select your confidence level for: Fatigue Select Number: 8 Physical Discomfort or Pain Select Number: 10 Emotional Distress Select Number: 10 Other Symptoms or Health Problems Select Number: 8 Different Tasks and Activities Select Number: 9 Medication Select Number: 9 Total Score:: 9 Nutrition Survey Nutrition Survey Instructions Scoring Instructions Exercise - 30-day Assessment Physician Prescribed Exercise Modalities: Treadmill, Schwinn Airdyne AD-7 and SciFit Stepper Exercise - 60-day Assessment Visit Date of Eval: 10/13/23 Session #:: 21 Physician Prescribed Exercise Modalities: Treadmill, Schwinn Airdyne AD-7 and SciFit Stepper Frequency: 3x/week for 12 weeks [36 sessions] Intensity: 60-80% of age predicted maximum heart rate reserve Duration: 30 - 45 minutes Current METSs:: 4.5 Target Heart Rate:: 86-101 Target RPE 11-14 Current RPE:: increased to 107-122 Current RPE:: 12 Maximum Excercise HR:: 95 Resting Blood Pressure: 122/62 Maximum Exercise Blood Pressure: 140/60 EKG Type: NSR to sinus tach with rare PVC. Current Physical Activity or Exercising minutes: 35:28 Outcomes & Goals Goals:: Verbalizes understanding of THR, RPE & goal METS by session 6, Documents in home exercise log/reports 30 min aerobic 5 day/wk by DC and Demonstrates accurate pulse taking by DC Intervention & Plan Exercise Program Goals: Instruct on personal THR & RPE, Instruct on MET level & personal MET goal, Show patient to take own pulse /validate performance until accurate and Instruct on home exercise 30-day Reassessments 30 day Reassessments:: Met Physical Activity Home Exercise Physical Activity - Home Exercise: Safe Exercise, Warm-up, Self-monitoring, Cool-Down, Home Exercise > 30 min Daily and Sitting Time <3 hours/daily Outcomes & Goals Outcomes/Goals: Demonstrates correct Warm-up/exercise Cool-Down (S3) if = 2.5 METs, Verbalizes symptoms of exercise intolerance by Session 3 (S3) and Demonstrate safe equipment use (S3) & follows exercise prescrition (6) Intervention & Plan Plan/Intervention: Instruct warm-up & cool-down if exercising at > 2 METs, Instruct on symptoms of exercise intolerance & actions to take, Instruct & monitor on saf and Assess intial functional capacity & safety risk 30-day Reassessments 30 day Reassessments:: Met Exercise - 90-day Assessment Physician Prescribed Exercise Modalities: Treadmill, Schwinn Airdyne AD-7 and SciFit Stepper Exercise - Final/Discharge Physician Prescribed Exercise Modalities: Treadmill, Schwinn Airdyne AD-7 and SciFit Stepper Nutrition - 30-Day Assessment Weight Mgt (Other Care) Height: 5 ft 6 in Weight:: 175 lb BMI: 28.2 Nutrition - 60-Day Assessment Program Goals Nutrition Program Goals Patient has diagnosis of Hyperlipidemia (ICD E78)?: Yes Visit Date of Eval: 06/24/24 Session #:: 21 Cholesterol/Lipids (Other Core Measures) Total Triglycerides (mg/dL): 241 Total Cholesterol: 146 LDL Cholesterol (mg/dL): 65 HDL Cholesterol (mg/dL): 33 Determine presence & major risk factors that modify LDL goal: Hypertension or hypertensive medication, Low HDL cholesterol <40 mg/dL* and Age men > 45 years; women >/= 55 years Outcomes/Goals: Pt IDs own risk factors & lifestyle modifications by Session 10, Verbalizes symptoms of angina & response by session 3. and Pt independently manages Intervention/Plan: Instruct on personal lipid levels & lipid goals/NCEP guidelines and Instruct on cholesterol Referral to dietitian:: No (Patient is encouraged to see Nutritional Services risk metabolic syndrome) 30-day Reassessments:: Progressing Diabetes (Other Core Measures) Diabetes Type: Diagnosis Type II ICD-10 E11 Fasting blood glucose:: 215 Hgb A1C (4.2 -6.3): 8.2 Insulin dependent injection/pump?: Yes Non-Insulin Dependent?: Yes Do you monitor your blood sugar at home?: Yes Referral to Diabetic Clinic:: Yes Outcomes/Goals:: Able to state symptoms of, Able to state and Able to state Intervention/Plan:: Instruct on, Refer to and Instruct on 30-day Reassessments:: Not Met Reassessment Notes & Comments:: Patient is encouraged to see Nutritional Services based on her multiple risk factors and risk of metabolic syndrome Weight Mgt (Other Care) Not Applicable: No Height: 5 ft 6 in Weight:: 175 lb BMI: 28.2 Diagnosis Overweight/Obesity BMI> 30% ICD-10 E66: No Diagnosis High BMI/Morbid Obesity BMI> 35% ICD-10 Z68: No Outcomes/Goals: Pt sets, maintains & shows weight loss goal & trend during rehab Intervention/Plan: Instruct on ideal BMI & set weight loss goal w/patient, Assist pt to ID & incorporate diet changes for weight loss by S9 and Encourage goal of using 250-300dcal per session for weight loss 30 day Reassessments:: Progressing Healthy Eating Habits Will attend diet classes:: Yes Outcomes/Goals:: Consume diet rich in vegs,fruits,whole grain/high fiber,fish,lean meat and Limit sat/trans fats,cholesterol & added salts & sugars Intervention/Plan:: Assess current eating habits 30-day Reassessments:: Progressing Education Gave educational materials for:: Signs & symptoms of hypoglycemia, Signs & symptoms of hyperglycemia, Relate diabetes to coronary artery disease and Healthy eating Core - 60-Day Assessment Visit Date of Eval: 10/13/23 Session #:: 21 Medication Compliance Preventative Medication(s):: Aspirin, Statin/lipid, Beta glendy and Warfarin/Coumadin H/O mental health issues: depression, anxiety, or addiction?: No Doesn?t believe in the benefits of treatment?: No Believes medications are unnecessary or harmful?: No Has a concern about medication side effects?: No Expresses concern over the cost of medications?: No Outcomes/Goals: Verbalizes medications,desired effect & common side effects @ DC, Pt self-reports following medication regimen and Keeps card in wallet w/medications listed by DC Interventions/plans: Instruct on medication effects & side effects, Review medication list w/patient every two weeks and Instruct importance of taking meds as ordered & assist problem solving 30-day Reassessments:: Met Tobacco Use Tobacco Use: Non-smoker Hypertension Hypertension Diagnosis:: Hypertension ICD-10 I10 Resting Blood Pressure:: 122/62 [place] [employer] Hypertension Guidelines Peak Exercise Blood Pressure:: 140/60 Outcomes/Goals: Able to verbalize/achieve optimal blood pressure <130/80 and Incorporates diet changes & exercise for blood pressure control by DC Interventions/plan: Instruct on optimal blood pressure, hypertension & medications and Instruct on effects of sodium, alcohol, stress, exercise &hypertension 30 day Reassessments:: Met Tobacco Cessation Referral Smoking Cessation Referral:: No Individual Education/Counseling:: No Education Schedule Given:: Yes Psychosocial - 30-Day Assess Target Goals Target Goals Referral to Behavioral Health PS - Interventions: Yes: Attend Stress Management Classes and No: Referral to Behavioral Health if PHQ-9 score >9:, No: Referral to [facility] and No: Referral to Physician if PHQ-9 if score is 5-9: Outcomes/Goals: See list Psychosocial Outcomes/Goals:: ID's personal stressors & 2 strategies to manage stress by discharge Psychosocial - 60-Day Assess VIsit Date of Eval: 10/13/23 Session #:: 21 Not Applicable: No History of previous Mental disease:: Yes History of Emotional Disorders: Anxious Target Goals Target Goals Psychosocial Test Tool Used:: PHQ-9 Questionnaire phq-9 Severity Referral to Behavioral Health PS - Interventions: Yes: Attend Stress Management Classes and No: Referral to Behavioral Health if PHQ-9 score >9:, No: Referral to [facility] and No: Referral to Physician if PHQ-9 if score is 5-9: Outcomes/Goals: See list Psychosocial Outcomes/Goals:: ID's personal stressors & 2 strategies to manage stress by discharge Intervention/Plan: See List Interventions/Plan:: Instruct/assist pt to develop coping & personal stress Mgt strategies, Instruct patient to recognize signs & symptoms of depression and Instruct patient to recog 30-day Reassessments: 30 day Reassessments:: Met Psychosocial - 90-Day Assess Target Goals Target Goals Referral to Behavioral Health PS - Interventions: Yes: Attend Stress Management Classes and No: Referral to Behavioral Health if PHQ-9 score >9:, No: Referral to [facility] and No: Referral to Physician if PHQ-9 if score is 5-9: Psychosocial - Final Assessmen Target Goals Target Goals Referral to Behavioral Health PS - Interventions: Yes: Attend Stress Management Classes and No: Referral to Behavioral Health if PHQ-9 score >9:, No: Referral to [facility] and No: Referral to Physician if PHQ-9 if score is 5-9: Nutrition - 90-Day Assessment Weight Mgt (Other Care) Height: 5 ft 6 in Weight:: 175 lb BMI: 28.2 Nutrition - Final Assessment Weight Mgt (Other Care) Height: 5 ft 6 in Weight:: 175 lb BMI: 28.2
[2023-10-13 08:10] VITALS: BP 122/62
[2023-10-13 08:35] VITALS: BP 122/62; BMI 28.2
== END 2023-10-19 23:59 ==
LOC: CR 11:30
PROVIDERS: PCP Internal Medicine
DX: Z95.1 Presence of aortocoronary bypass graft (principal); Z95.2 Presence of prosthetic heart valve
CPT/HCPCS: 93798

== ENCOUNTER 2023-11-19 11:30 | Outpatient (RCR) | payer MEDICARE, SELFPAY ==
[2023-10-20 00:46] VITALS: BP 122/62; BP 126/58; BP 130/78; BMI 28.1
--- NOTE | 2023-11-12 08:08 | CR.ITP_ITS ---
Exercise - Initial Assessment Physician Prescribed Exercise Modalities: Treadmill, Schwinn Airdyne AD-7 and SciFit Stepper Nutrition - Initial Assessment Weight Mgt (Other Care) Height: 5 ft 6 in Weight:: 170 lb 8 oz BMI: 27.5 Psychosocial - Initial Assess Target Goals Target Goals Patient Health Questionnaire PHQ-9 Screening 90-Day Re-eval Assessment: 1. Little interest or pleasure in doing things: Not at all 2. Feeling down, depressed, or hopeless: Not at all 3. Trouble falling or staying asleep, or sleeping too much: Several days 4. Feeling tired or having little energy: Several days 5. Poor appetite or overeating: Not at all 6. Feeling bad about yourself -- or that you are a failure or have let yourself or your family down: Not at all 7. Trouble concentrating on things, such as reading the newspaper or watching television: Not at all 8. Moving or speaking so slowly that other people could have noticed. Or the opposite - being so fidgety or restless that you have been moving around a lot more than usual: Not at all 9. Thoughts that you would be better off , or of hurting yourself in some way: Not at all How difficult have these problems made it for you to do your work, take care of things at home, or get along with other people?: Not difficult at all Total Score: 2 Self-Efficacy 6-Item Scale 90-Day Re-eval Assessment: We would like to know how confident you are in doing certain activities. Please select your confidence level for: Fatigue Select Number: 8 Physical Discomfort or Pain Select Number: 10 Emotional Distress Select Number: 10 Other Symptoms or Health Problems Select Number: 8 Different Tasks and Activities Select Number: 9 Medication Select Number: 9 Total Score:: 9 Nutrition Survey Nutrition Survey Instructions Scoring Instructions Exercise - 30-day Assessment Physician Prescribed Exercise Modalities: Treadmill, Schwinn Airdyne AD-7 and SciFit Stepper Exercise - 60-day Assessment Physician Prescribed Exercise Modalities: Treadmill, Schwinn Airdyne AD-7 and SciFit Stepper Exercise - 90-day Assessment Visit Date of Eval: 11/12/23 Session #:: 33 Physician Prescribed Exercise Modalities: Treadmill, Schwinn Airdyne AD-7 and SciFit Stepper Frequency: 3x/week for 12 weeks [36 sessions] Intensity: 60-80% of age predicted maximum heart rate reserve Duration: 30 - 45 minutes Current METSs:: 4.5 Target Heart Rate:: 107-122 Current RPE:: 12-13 Maximum Excercise HR:: 98 Resting Blood Pressure: 98/48 Maximum Exercise Blood Pressure: 144/60 EKG Type: NSR to ST with rare pac,pvc. Outcomes & Goals Goals:: Verbalizes understanding of THR, RPE & goal METS by session 6, Documents in home exercise log/reports 30 min aerobic 5 day/wk by DC, Demonstrates accu rate pulse taking by DC and Other additional outcome/goals: see below Intervention & Plan Exercise Program Goals: Instruct on personal THR & RPE, Instruct on MET level & personal MET goal, Show patient to take own pulse /validate performance until accurate, Instruct on home exercise and Other additional plan/int 30-day Reassessments 30 day Reassessments:: Met Physical Activity Home Exercise Physical Activity - Home Exercise: Safe Exercise, Warm-up, Self-monitoring, Cool-Down, Home Exercise > 30 min Daily and Sitting Time <3 hours/daily Outcomes & Goals Outcomes/Goals: Demonstrates correct Warm-up/exercise Cool-Down (S3) if = 2.5 METs, Verbalizes symptoms of exercise intolerance by Session 3 (S3), Demonstrate safe equipment use (S3) & follows exercise prescrition (6) and Other: See below Intervention & Plan Plan/Intervention: Instruct warm-up & cool-down if exercising at > 2 METs, Instruct on symptoms of exercise intolerance & actions to take, Instruct & monitor on saf, Assess intial functional capacity & safety risk and Other See below 30-day Reassessments 30 day Reassessments:: Met Exercise - Final/Discharge Physician Prescribed Exercise Modalities: Treadmill, Schwinn Airdyne AD-7 and SciFit Stepper Nutrition - 30-Day Assessment Weight Mgt (Other Care) Height: 5 ft 6 in Weight:: 170 lb 8 oz BMI: 27.5 Nutrition - 60-Day Assessment Weight Mgt (Other Care) Height: 5 ft 6 in Weight:: 170 lb 8 oz BMI: 27.5 Core - 90 Day Assessment Medication Compliance Preventative Medication(s):: Aspirin, Statin/lipid, Beta glendy and Warfarin/Coumadin H/O mental health issues: depression, anxiety, or addiction?: No Doesn?t believe in the benefits of treatment?: No Believes medications are unnecessary or harmful?: No Has a concern about medication side effects?: No Expresses concern over the cost of medications?: No Outcomes/Goals: Verbalizes medications,desired effect & common side effects @ DC, Pt self-reports following medication regimen, Keeps card in wallet w/medications listed by DC and Other additional outcome/goals: Interventions/plans: Instruct on medication effects & side effects, Review medication list w/patient every two weeks, Instruct importance of taking meds as ordered & assist problem solving and Other additional 30-day Reassessments:: Met Tobacco Use Tobacco Use: Non-smoker Hypertension Hypertension Diagnosis:: Hypertension ICD-10 I10 Resting Blood Pressure:: 98/48 [place] [employer] Hypertension Guidelines Peak Exercise Blood Pressure:: 144/60 Outcomes/Goals: Able to verbalize/achieve optimal blood pressure <130/80, Incorporates diet changes & exercise for blood pressure control by DC and Other additional outcomes/goals Interventions/plan: Instruct on optimal blood pressure, hypertension & medications, Instruct on effects of sodium, alcohol, stress, exercise &hypertension and Other additional plan/interventions 30 day Reassessments:: Met Tobacco Cessation Referral Smoking Cessation Referral:: No Individual Education/Counseling:: No Education Schedule Given:: Yes Psychosocial - 30-Day Assess Target Goals Target Goals Psychosocial - 60-Day Assess Target Goals Target Goals Psychosocial - 90-Day Assess VIsit Date of Eval: 11/12/23 Session #:: 33 History of previous Mental disease:: Yes History of Emotional Disorders: Anxious Target Goals Target Goals Outcomes/Goals: See list Psychosocial Outcomes/Goals:: ID's personal stressors & 2 strategies to manage stress by discharge and Other Additional outcome/goals: Intervention/Plan: See List Interventions/Plan:: Assess stressors,coping strategies & signs of derpression on admission, Instruct/assist pt to develop coping & personal stress Mgt strategies, Refer to Behavioral Health if appropriate, Refer to Physician if appropriate, Instruct patient to recognize signs & symptoms of depression, Instruct patient to recog and Other additional plan/intervention 30-day Reassessments: 30 day Reassessments:: Met Psychosocial - Final Assessmen Target Goals Target Goals Nutrition - 90-Day Assessment Program Goals Nutrition Program Goals Patient has diagnosis of Hyperlipidemia (ICD E78)?: Yes Visit Date of Eval: 11/12/23 Session #:: 33 Cholesterol/Lipids (Other Core Measures) Determine presence & major risk factors that modify LDL goal: Hypertension or hypertensive medication, Low HDL cholesterol <40 mg/dL*, Family history of premature CHD in Male < 55 years: female <65 yearsFa and Age men > 45 years; women >/= 55 years Outcomes/Goals: Pt IDs own risk factors & lifestyle modifications by Session 10, Verbalizes symptoms of angina & response by session 3., Pt independently manages and Other Additional Outcomes/Goals: Intervention/Plan: Advocate for lipid panel cholesterol medication if applicable, Instruct on personal lipid levels & lipid goals/NCEP guidelines, Instruct on cholesterol and Other additional plan/int 30-day Reassessments:: Met Diabetes (Other Core Measures) Diabetes Type: Diagnosis Type II ICD-10 E11 Fasting blood glucose:: 124 Insulin dependent injection/pump?: Yes Non-Insulin Dependent?: Yes Do you monitor your blood sugar at home?: Yes Outcomes/Goals:: Able to state symptoms of, Able to state, Able to state and Other additional Intervention/Plan:: Instruct on, Refer to, Instruct on and Other 30-day Reassessments:: Met Weight Mgt (Other Care) Height: 5 ft 6 in Weight:: 170 lb 8 oz BMI: 27.5 Diagnosis Overweight/Obesity BMI> 30% ICD-10 E66: No Diagnosis High BMI/Morbid Obesity BMI> 35% ICD-10 Z68: No Outcomes/Goals: Pt sets, maintains & shows weight loss goal & trend during rehab and Other additional outcomes/goals Intervention/Plan: Instruct on ideal BMI & set weight loss goal w/patient, Assist pt to ID & incorporate diet changes for weight loss by S9, Refer to Structured Weight Loss program as appropriate, Encourage goal of using 250- 300dcal per session for weight loss and Other additional plan/interventions 30 day Reassessments:: Met Healthy Eating Habits Will attend diet classes:: Yes Outcomes/Goals:: Consume diet rich in vegs,fruits,whole grain/high fiber,fish,lean meat, Limit sat/trans fats,cholesterol & added salts & sugars and Other additional outcome/goals: Intervention/Plan:: Assess current eating habits and Other Additional plan/interventions 30-day Reassessments:: Met Education Gave educational materials for:: Signs & symptoms of hypoglycemia, Signs & symptoms of hyperglycemia, Relate diabetes to coronary artery disease and Healthy eating Nutrition - Final Assessment Weight Mgt (Other Care) Height: 5 ft 6 in Weight:: 170 lb 8 oz BMI: 27.5
[2023-11-12 08:19] VITALS: BP 98/48; BMI 27.5
== END 2023-11-19 23:59 ==
LOC: CR 11:30
PROVIDERS: PCP Internal Medicine
DX: Z95.1 Presence of aortocoronary bypass graft (principal); Z95.2 Presence of prosthetic heart valve
CPT/HCPCS: 93798

== ENCOUNTER 2023-11-21 10:40 | Outpatient (RCR) | payer MEDICARE, SELFPAY ==
[2023-11-21 10:32] VITALS: BMI 27.5
== END 2023-12-20 23:59 ==
LOC: CR 10:40
PROVIDERS: PCP Internal Medicine; Referring Provider Internal Medicine Cardiovascular Disease; Visit Provider Internal Medicine Cardiovascular Disease
DX: Z95.1 Presence of aortocoronary bypass graft (principal); Z95.4 Presence of other heart-valve replacement
CPT/HCPCS: 93798